=== PATIENT | female | born 1950 | race Caucasian/White ===

== ENCOUNTER 2016-10-18 11:08 | Emergency (ER) | payer OTHER ==
[~2016-10-18] VITALS: Ht 154.9 cm; Wt 55.3 kg
[~2016-10-18 11:08] MED LIST: ALBUTEROL0.09 MG/A2 INH; AMARYL4 MG PO; ASACOL400 MG PO; ASPIRIN81 M1 PO; BACTRIM DS 8001 TA1 PO; BACTROBAN22 T; BETADINE T; BETAMETHASONE VA0.1% T; BROMFED DM 480480 ML PO; CLINDAMYCIN300 MG PO; DAILY VITAMIN1 EAC3 PO; DARVOCET N 1001 TAB PO; DAYPRO600 M1 PO; DELTASONE10 MG PO; DIFLUCAN200 MG PO; DONNATAL1 TAB PO; DRISDOL50000 IU PO; FLAGYL500 MG PO; FLEXERIL5 MG PO; FOSAMAX70 M1 PO; FOSAMAX70 MG PO; GLUCOPHAGE500 MG PO; IMDUR SA30 MG PO; IMDUR30 MG PO; ISOSORBIDE MONO30 MG PO; LEVAQUIN250 MG PO; LIPITOR20 MG PO; LISINOPRIL10 MG PO; LOPRESSOR25 MG PO; MAGNESIUM OXID400 MG PO; MOTRIN800 MG PO; MULTIPLE VITAMI1 CAP PO; NEXIUM40 MG PO; NITROSTAT0.4 MG SL; NORCO 325 MG-51 TAB PO; OSCAL,OYSTER S500 MG PO; PLAVIX75 M1 PO; PLAVIX75 MG PO; PRILOSEC20 MG PO; PROAIR HFA0.09 MG/AC INH; PROTONIX40 MG PO; SYNTHROID25 MCG PO; TOPROL XL50 M1 PO; TOPROL XL50 MG PO; TRAMADOL HCL50 MG PO; VICODIN 5/500 505 MG PO; VITAMIN D2400 UNIT PO; VITAMIN D50000 I3 PO; ZOCOR40 MG PO; ZOFRAN4 MG PO; ZOLOFT50 MG PO
[2016-10-18] MEDS ORDERED: LOMOTIL 0.025 M1 TA1 PO (11:20)
[2016-10-18] MEDS ORDERED: FOSAMAX70 M1 PO (11:21)
[2016-10-18] MEDS ORDERED: ATROVENT I0.5 MG/2.1 INH (11:22)
[2016-10-18] MEDS ORDERED: METFORMIN HCL500 MG PO (11:24)
[2016-10-18] MEDS ORDERED: OXYCODONE HYDRO15 MG PO (11:26)
[2016-10-18] MEDS ORDERED: PSYLLIUM HUSK (11:28)
[2016-10-18] MEDS ORDERED: ZOLOFT50 MG PO (11:29)
[2016-10-18] MEDS ORDERED: MULTI VITAMINS1 TAB PO (11:30)
[2016-10-18] MEDS ORDERED: VITAMIN D5000 I3 PO (11:30)
[2016-10-18] MEDS ORDERED: GLIMEPIRIDE4 M1 PO (11:31)
[2016-10-18 12:01] LABS: HEMATOCRIT 32.1 % (37.0-47.0); HEMOGLOBIN 10.3 g/dl (12.0-16.0); MEAN CELL VOLUME 81.5 fl (81.0-99.0); MEAN CORPUSCULAR HGB 26.1 pg (27.0-31.0); MEAN CORPUSCULAR HGB CONC 32.1 g/dl (33.0-37.0); MEAN PLATELET VOLUME 9.8 fl (9.6-12.3); PLATELET COUNT AUTOMATED 580 10*3/uL (130-400); RED BLOOD COUNT 3.94 10*6/uL (4.10-5.10); RED CELL DISTRI WIDTH 17.2 % (0-14.5); WHITE BLOOD COUNT 23.5 10*3/uL (4.8-10.8)
[2016-10-18 12:17] LABS: ALBUMIN 2.4 gm/dl (3.1-4.5); BILIRUBIN, TOTAL 0.3 mg/dl (0.2-1.0); MAGNESIUM 2.1 mg/dL (1.5-2.1); POTASSIUM 3.6 mmol/L (3.5-5.1); TOTAL PROTEIN 8.1 gm/dL (6.4-8.2)
[2016-10-18 12:19] LABS: LYMPHOCYTE # 0.7 10*3/uL (1.3-4.4); MONOCYTE # 0.7 10*3/uL (0.1-1.0); NEUTROPHIL # 22.1 10*3/uL (2.3-7.9); NEUTROPHILS 94 % (47-73); TOTAL CELLS COUNTED 100 #CELLS
[2016-10-18 12:20] LABS: PLATELET SUFFICIENCY HIGH (NORMAL)
[2016-10-18 14:31] LABS: BILIRUBIN 2+ (NEGATIVE); BLOOD 2+ (NEGATIVE); COLOR YELLOW (YELLOW); GLUCOSE NEGATIVE (NEGATIVE); KETONE TRACE (NEGATIVE); LEUKO ESTERASE 1+ (NEGATIVE); NITRITE NEGATIVE (NEGATIVE); PROTEIN 2+ (NEGATIVE); SPECIFIC GRAVITY >= 1.030 (1.005-1.030); UROBILINOGEN 0.2 E.U./dl (0.2-1.0)
[2016-10-18 14:32] LABS: CLARITY CLOUDY (CLEAR)
[2016-10-18 14:42] LABS: BACTERIA 2+; URINE REFLEX COMMENT YES (NO); WBC 21-30 wbc/hpf (0-5)
[2016-10-18 15:01] LABS: LA>2 REFLEX 2 HR DRAW NOW
[2016-10-18 16:13] VITALS: BP 116/66
== END 2016-10-18 17:29 | disposition short-term general hospital (02) ==
LOC: ED 11:08
PROVIDERS: Emergency Medicine
DX: A41.9 Sepsis, unspecified organism (principal); N39.0 Urinary tract infection, site not specified; E86.0 Dehydration; Z88.0 Allergy status to penicillin; Z88.1 Allergy status to other antibiotic agents; Z88.8 Allergy status to other drugs, medicaments and biological substances; Z90.49 Acquired absence of other specified parts of digestive tract; Z79.899 Other long term (current) drug therapy

== ENCOUNTER 2016-11-07 07:50 | Inpatient (IN) | payer OTHER ==
[~2016-11-07] VITALS: Ht 155 cm; Wt 52.3 kg
[2016-11-07] VITALS (70 sets, daily range): BP systolic 74–146; BP diastolic 40–90
--- NOTE | ~2016-11-07 | EKG ---
[place], [place] ELECTROCARDIOGRAM REPORT NAME: BLAS CANO UNIT #: [id number] ROOM: [facility] DOCTOR: VIDAL KITCHEN,EMANUEL BIRTHDATE: [birth year] DOS: 11/07/2016 TIME: 07:55. Sinus tachycardia at rate of 138, low voltage present right axis deviation, probable right atrial enlargement and left atrial enlargement, T-wave inversion in inferior lateral leads, maybe related to her secondary ____ ischemia, prolonged QT interval. Abnormal EKG. EMANUEL DRAKE MD CM:EKGRPT:ELECTROCARDIOGRAM REPORT [id number] EMANUEL DRAKE MD
[~2016-11-07 07:50] MED LIST changes: +ATROVENT I0.5 MG/2.1 INH; +GLIMEPIRIDE4 M1 PO; +LOMOTIL 0.025 M1 TA1 PO; +METFORMIN HCL500 MG PO; +MULTI VITAMINS1 TAB PO; +OXYCODONE HYDRO15 MG PO; +PSYLLIUM HUSK; +VITAMIN D5000 I3 PO
[2016-11-07] MEDS ORDERED: ZANTAC 150150 MG PO (08:05)
[2016-11-07] MEDS ORDERED: QUESTRAN POWDE378 GM PO (08:06)
[2016-11-07] MEDS ORDERED: SERTRALINE HYDR50 MG PO (08:07)
[2016-11-07] MEDS ORDERED: ACETAMINOPHEN-O1 TAB PO (08:09)
[2016-11-07] MEDS ORDERED: JANUVIA100 MG PO (08:10)
[2016-11-07 08:39] LABS: HEMATOCRIT 29.9 % (37.0-47.0); HEMOGLOBIN 9.4 g/dl (12.0-16.0); MEAN CELL VOLUME 81.3 fl (81.0-99.0); MEAN CORPUSCULAR HGB 25.5 pg (27.0-31.0); MEAN CORPUSCULAR HGB CONC 31.4 g/dl (33.0-37.0); MEAN PLATELET VOLUME 9.5 fl (9.6-12.3); PLATELET COUNT AUTOMATED 468 10*3/uL (130-400); RED BLOOD COUNT 3.68 10*6/uL (4.10-5.10); RED CELL DISTRI WIDTH 16.3 % (0-14.5); WHITE BLOOD COUNT 29.4 10*3/uL (4.8-10.8)
[2016-11-07 08:49] LABS: INTERNATIONAL NORM RATIO 1.4 (2.0-3.5); PROTHROMBIN TIME 14.6 SECONDS (9.0-12.4)
[2016-11-07 08:55] LABS: ALBUMIN 2.7 gm/dl (3.1-4.5); ALKALINE PHOSPHATASE 144 U/L (45-117); BILIRUBIN, TOTAL 0.3 mg/dl (0.2-1.0); BUN 33 mg/dl (7-24); CARBON DIOXIDE 21 mmol/L (21-32); CHLORIDE 97 mmol/L (98-107); EST GLOM FILT AFRICAN AMERICAN 28 ml/min; GLUCOSE 158 mg/dL (65-99); POTASSIUM 4.3 mmol/L (3.5-5.1); SGOT/AST 14 IU/L (3-35); SGPT/ALT 18 U/L (12-78); SODIUM 137 mmol/L (136-145); TOTAL PROTEIN 8.1 gm/dL (6.4-8.2)
[2016-11-07 08:59] LABS: EOSINOPHIL # 0.6 10*3/uL (0-0.4); EOSINOPHILS 2 % (1-4); MONOCYTE # 0.9 10*3/uL (0.1-1.0); MYELOCYTES 1 % (0-0); NEUTROPHIL # 27.6 10*3/uL (2.3-7.9); NEUTROPHILS 94 % (47-73); TOTAL CELLS COUNTED 100 #CELLS
[2016-11-07 09:00] LABS: PLATELET SUFFICIENCY HIGH (NORMAL)
[2016-11-07 09:08] LABS: TROPONIN I < 0.015 ng/ml (<0.045)
[2016-11-07 09:35] LABS: BILIRUBIN NEGATIVE (NEGATIVE); BLOOD 3+ (NEGATIVE); CLARITY CLOUDY (CLEAR); COLOR YELLOW (YELLOW); GLUCOSE NEGATIVE (NEGATIVE); KETONE TRACE (NEGATIVE); LEUKO ESTERASE 2+ (NEGATIVE); NITRITE NEGATIVE (NEGATIVE); PROTEIN 2+ (NEGATIVE); SPECIFIC GRAVITY >= 1.030 (1.005-1.030); UROBILINOGEN 0.2 E.U./dl (0.2-1.0)
[2016-11-07 09:45] LABS: URINE REFLEX COMMENT YES (NO); WBC TNTC wbc/hpf (0-5)
[2016-11-07 10:36] LABS: LA>2 REFLEX 2 HR DRAW NOW
[2016-11-07] MEDS ORDERED: VITAMIN D50000 UNIT PO (12:09)
[2016-11-08] VITALS (54 sets, daily range): BP systolic 83–122; BP diastolic 40–79
[2016-11-08 05:33] LABS: POTASSIUM 3.5 mmol/L (3.5-5.1)
[2016-11-08 05:51] LABS: HEMATOCRIT 27.1 % (37.0-47.0); HEMOGLOBIN 8.3 g/dl (12.0-16.0); MEAN CELL VOLUME 82.9 fl (81.0-99.0); MEAN CORPUSCULAR HGB 25.4 pg (27.0-31.0); MEAN CORPUSCULAR HGB CONC 30.6 g/dl (33.0-37.0); MEAN PLATELET VOLUME 9.7 fl (9.6-12.3); PLATELET COUNT AUTOMATED 449 10*3/uL (130-400); RED BLOOD COUNT 3.27 10*6/uL (4.10-5.10); RED CELL DISTRI WIDTH 16.2 % (0-14.5); WHITE BLOOD COUNT 26.7 10*3/uL (4.8-10.8)
[2016-11-08 06:25] LABS: INTERNATIONAL NORM RATIO 1.5 (2.0-3.5); PROTHROMBIN TIME 16.4 SECONDS (9.0-12.4)
[2016-11-08 06:49] LABS: HYPOCHROMIA SLIGHT; MONOCYTE # 0.8 10*3/uL (0.1-1.0); NEUTROPHIL # 25.9 10*3/uL (2.3-7.9); NEUTROPHILS 97 % (47-73); PLATELET SUFFICIENCY HIGH (NORMAL); TOTAL CELLS COUNTED 100 #CELLS
[2016-11-08 06:56] LABS: HEMOGLOBIN A1c 5.7 % (4.8-5.6)
== END 2016-11-08 16:08 | disposition short-term general hospital (02) | DRG 871 ==
LOC: ED 07:50 → ICCU 10:55 → EDHOLD 10:55 → ICCU 11:10
PROVIDERS: Emergency Medicine; Internal Medicine
DX: A41.9 Sepsis, unspecified organism (principal); E43 Unspecified severe protein-calorie malnutrition; L89.154 Pressure ulcer of sacral region, stage 4; N18.4 Chronic kidney disease, stage 4 (severe); E11.22 Type 2 diabetes mellitus with diabetic chronic kidney disease; J44.9 Chronic obstructive pulmonary disease, unspecified; R65.20 Severe sepsis without septic shock; D47.3 Essential (hemorrhagic) thrombocythemia; I12.9 Hypertensive chronic kidney disease with stage 1 through stage 4 chronic kidney disease, or unspecified chronic kidney disease; E55.9 Vitamin D deficiency, unspecified; E78.5 Hyperlipidemia, unspecified; I25.10 Atherosclerotic heart disease of native coronary artery without angina pectoris; G89.29 Other chronic pain; R82.71 Bacteriuria; K57.90 Diverticulosis of intestine, part unspecified, without perforation or abscess without bleeding; R74.0 Nonspecific elevation of levels of transaminase and lactic acid dehydrogenase [LDH]; M81.0 Age-related osteoporosis without current pathological fracture; E11.65 Type 2 diabetes mellitus with hyperglycemia; F32.9 Major depressive disorder, single episode, unspecified; Z95.5 Presence of coronary angioplasty implant and graft; Z68.21 Body mass index [BMI] 21.0-21.9, adult; Z93.3 Colostomy status; Z98.49 Cataract extraction status, unspecified eye; Z82.49 Family history of ischemic heart disease and other diseases of the circulatory system; Z83.6 Family history of other diseases of the respiratory system; Z88.0 Allergy status to penicillin; Z88.1 Allergy status to other antibiotic agents; Z88.8 Allergy status to other drugs, medicaments and biological substances; Z79.899 Other long term (current) drug therapy

== ENCOUNTER 2017-02-23 11:04 | Inpatient (IN) | payer OTHER ==
[2017-02-23] VITALS (10 sets, daily range): BP systolic 88–140; BP diastolic 40–65
[~2017-02-23] VITALS: Ht 157.5 cm; Wt 54.6 kg
[~2017-02-23 11:04] MED LIST changes: +ACETAMINOPHEN-O1 TAB PO; +JANUVIA100 MG PO; +QUESTRAN POWDE378 GM PO; +SERTRALINE HYDR50 MG PO; +VITAMIN D50000 UNIT PO; +ZANTAC 150150 MG PO
[2017-02-23 12:04] LABS: BASO % 0.3 % (0.0-1.0); EOS # 0.2 10*3/uL (0.0-0.4); EOS % 1.7 % (1.0-4.0); HEMATOCRIT 23.8 % (37.0-47.0); HEMOGLOBIN 6.9 g/dl (12.0-16.0); LYMPH # 0.5 10*3/uL (1.3-4.4); LYMPH % 5.1 % (27.0-41.0); MEAN CELL VOLUME 87.8 fl (81.0-99.0); MEAN CORPUSCULAR HGB 25.5 pg (27.0-31.0); MEAN PLATELET VOLUME 9.5 fl (9.6-12.3); MONO # 0.8 10*3/uL (0.1-1.0); MONO % 7.1 % (3.0-9.0); NEUT # 9.1 10*3/uL (2.3-7.9); NEUT % 85.4 % (47.0-73.0); PLATELET COUNT AUTOMATED 360 10*3/uL (130-400); RED BLOOD COUNT 2.71 10*6/uL (4.10-5.10); RED CELL DISTRI WIDTH 14.6 % (0-14.5); WHITE BLOOD COUNT 10.7 10*3/uL (4.8-10.8)
[2017-02-23 12:13] LABS: INTERNATIONAL NORM RATIO 1.2 (2.0-3.5); PROTHROMBIN TIME 13.4 SECONDS (9.0-12.4)
[2017-02-23 12:19] LABS: ALBUMIN 1.9 gm/dl (3.1-4.5); ALKALINE PHOSPHATASE 157 U/L (45-117); BILIRUBIN, TOTAL 0.1 mg/dl (0.2-1.0); BUN 34 mg/dl (7-24); CARBON DIOXIDE 19 mmol/L (21-32); CHLORIDE 110 mmol/L (98-107); EST GLOM FILT AFRICAN AMERICAN > 60 ml/min; GLUCOSE 125 mg/dL (65-99); POTASSIUM 4.1 mmol/L (3.5-5.1); SGOT/AST 9 IU/L (3-35); SGPT/ALT 16 U/L (12-78); SODIUM 141 mmol/L (136-145); TOTAL PROTEIN 6.5 gm/dL (6.4-8.2)
[2017-02-23] MEDS ORDERED: PERCOCET 5-3251 EACH PO (14:43)
[2017-02-23] MEDS ORDERED: LOMOTIL 2.5-0.1 EACH PO (14:46)
[2017-02-23] MEDS ORDERED: FLAGYL500 MG PO (15:40)
[2017-02-23] MEDS ORDERED: SODIUM CHLORIDE PO (15:42)
[2017-02-23 19:23] LABS: BASO % 0.3 % (0.0-1.0); EOS # 0.2 10*3/uL (0.0-0.4); EOS % 1.7 % (1.0-4.0); HEMATOCRIT 27.7 % (37.0-47.0); HEMOGLOBIN 8.6 g/dl (12.0-16.0); LYMPH # 0.9 10*3/uL (1.3-4.4); LYMPH % 9.2 % (27.0-41.0); MEAN CORPUSCULAR HGB 26.4 pg (27.0-31.0); MEAN PLATELET VOLUME 9.9 fl (9.6-12.3); MONO # 0.9 10*3/uL (0.1-1.0); MONO % 9.3 % (3.0-9.0); NEUT # 7.6 10*3/uL (2.3-7.9); NEUT % 79.2 % (47.0-73.0); PLATELET COUNT AUTOMATED 357 10*3/uL (130-400); RED BLOOD COUNT 3.26 10*6/uL (4.10-5.10); RED CELL DISTRI WIDTH 14.7 % (0-14.5); WHITE BLOOD COUNT 9.7 10*3/uL (4.8-10.8)
[2017-02-23 19:38] LABS: INTERNATIONAL NORM RATIO 1.2 (2.0-3.5); PROTHROMBIN TIME 12.8 SECONDS (9.0-12.4)
[2017-02-23 19:41] LABS: FREE T4 1.02 ng/dl (0.76-1.46); MAGNESIUM 2.2 mg/dL (1.5-2.1); PHOSPHOROUS 3.9 mg/dL (2.5-4.9)
[2017-02-23 19:45] LABS: TROPONIN I < 0.015 ng/ml (<0.045)
[2017-02-24] VITALS: BP 108/59
[2017-02-24 06:43] LABS: BASO % 0.4 % (0.0-1.0); EOS # 0.3 10*3/uL (0.0-0.4); EOS % 3.6 % (1.0-4.0); HEMATOCRIT 26.9 % (37.0-47.0); HEMOGLOBIN 8.2 g/dl (12.0-16.0); LYMPH # 0.8 10*3/uL (1.3-4.4); LYMPH % 10.9 % (27.0-41.0); MEAN CELL VOLUME 85.7 fl (81.0-99.0); MEAN CORPUSCULAR HGB 26.1 pg (27.0-31.0); MEAN CORPUSCULAR HGB CONC 30.5 g/dl (33.0-37.0); MEAN PLATELET VOLUME 10.1 fl (9.6-12.3); MONO # 0.8 10*3/uL (0.1-1.0); MONO % 11.9 % (3.0-9.0); NEUT # 5.1 10*3/uL (2.3-7.9); NEUT % 72.8 % (47.0-73.0); PLATELET COUNT AUTOMATED 369 10*3/uL (130-400); RED BLOOD COUNT 3.14 10*6/uL (4.10-5.10)
[2017-02-24 07:15] LABS: ALBUMIN 1.9 gm/dl (3.1-4.5); ALKALINE PHOSPHATASE 153 U/L (45-117); BILIRUBIN, TOTAL 0.2 mg/dl (0.2-1.0); BUN 37 mg/dl (7-24); CARBON DIOXIDE 21 mmol/L (21-32); CHLORIDE 109 mmol/L (98-107); EST GLOM FILT AFRICAN AMERICAN > 60 ml/min; GLUCOSE 167 mg/dL (65-99); POTASSIUM 3.9 mmol/L (3.5-5.1); SGOT/AST 10 IU/L (3-35); SGPT/ALT 14 U/L (12-78); SODIUM 139 mmol/L (136-145); TOTAL PROTEIN 6.3 gm/dL (6.4-8.2)
[2017-02-24 08:00] VITALS: BP 111/65
[2017-02-24 12:00] VITALS: BP 107/57
[2017-02-24 16:00] VITALS: BP 112/54
[2017-02-24 20:00] VITALS: BP 101/52
[2017-02-25] VITALS: BP 112/51
[2017-02-25 07:07] LABS: BASO % 0.3 % (0.0-1.0); EOS # 0.2 10*3/uL (0.0-0.4); EOS % 3.2 % (1.0-4.0); LYMPH # 0.7 10*3/uL (1.3-4.4); LYMPH % 9.9 % (27.0-41.0); MEAN CELL VOLUME 86.1 fl (81.0-99.0); MEAN CORPUSCULAR HGB 26.5 pg (27.0-31.0); MEAN CORPUSCULAR HGB CONC 30.8 g/dl (33.0-37.0); MONO # 0.9 10*3/uL (0.1-1.0); MONO % 13.2 % (3.0-9.0); PLATELET COUNT AUTOMATED 367 10*3/uL (130-400); RED BLOOD COUNT 3.02 10*6/uL (4.10-5.10); RED CELL DISTRI WIDTH 14.9 % (0-14.5); WHITE BLOOD COUNT 6.9 10*3/uL (4.8-10.8)
[2017-02-25 07:27] LABS: ALBUMIN 1.9 gm/dl (3.1-4.5); ALKALINE PHOSPHATASE 157 U/L (45-117); BILIRUBIN, TOTAL 0.1 mg/dl (0.2-1.0); BUN 39 mg/dl (7-24); CARBON DIOXIDE 21 mmol/L (21-32); CHLORIDE 110 mmol/L (98-107); EST GLOM FILT AFRICAN AMERICAN > 60 ml/min; GLUCOSE 114 mg/dL (65-99); MAGNESIUM 1.9 mg/dL (1.5-2.1); PHOSPHOROUS 3.3 mg/dL (2.5-4.9); POTASSIUM 4.2 mmol/L (3.5-5.1); SGOT/AST 9 IU/L (3-35); SGPT/ALT 13 U/L (12-78); SODIUM 139 mmol/L (136-145); TOTAL PROTEIN 6.3 gm/dL (6.4-8.2)
[2017-02-25 08:00] VITALS: BP 104/50
== END 2017-02-25 13:33 | disposition short-term general hospital (02) | DRG 602 ==
LOC: ED 11:04 → 5E 12:38 → EDHOLD 12:38 → 5E 12:45
PROVIDERS: Internal Medicine; Internal Medicine Hospice and Palliative Medicine; Nurse Practitioner Family; Registered Nurse
PROC: 30233N1 Transfusion of Nonautologous Red Blood Cells into Peripheral Vein, Percutaneous Approach (ICD-10-PCS; principal; 2017-02-23)
DX: L02.211 Cutaneous abscess of abdominal wall (principal); L89.154 Pressure ulcer of sacral region, stage 4; E43 Unspecified severe protein-calorie malnutrition; K63.2 Fistula of intestine; E87.8 Other disorders of electrolyte and fluid balance, not elsewhere classified; N18.4 Chronic kidney disease, stage 4 (severe); E11.22 Type 2 diabetes mellitus with diabetic chronic kidney disease; J44.9 Chronic obstructive pulmonary disease, unspecified; D63.8 Anemia in other chronic diseases classified elsewhere; K60.4 Rectal fistula; I12.9 Hypertensive chronic kidney disease with stage 1 through stage 4 chronic kidney disease, or unspecified chronic kidney disease; M81.0 Age-related osteoporosis without current pathological fracture; E55.9 Vitamin D deficiency, unspecified; E11.65 Type 2 diabetes mellitus with hyperglycemia; F32.9 Major depressive disorder, single episode, unspecified; E78.5 Hyperlipidemia, unspecified; K57.90 Diverticulosis of intestine, part unspecified, without perforation or abscess without bleeding; Z68.22 Body mass index [BMI] 22.0-22.9, adult; Z93.3 Colostomy status; Z93.2 Ileostomy status; Z95.5 Presence of coronary angioplasty implant and graft; Z87.891 Personal history of nicotine dependence; Z88.0 Allergy status to penicillin; Z88.1 Allergy status to other antibiotic agents; Z88.8 Allergy status to other drugs, medicaments and biological substances; Z79.02 Long term (current) use of antithrombotics/antiplatelets; Z79.899 Other long term (current) drug therapy; Z82.49 Family history of ischemic heart disease and other diseases of the circulatory system; Z82.5 Family history of asthma and other chronic lower respiratory diseases; Z98.49 Cataract extraction status, unspecified eye

== ENCOUNTER → 2017-05-23 | Day surgery (SDC) | payer OTHER ==
--- NOTE | 2017-05-16 10:50 | NUR ---
PT HERE FOR PICC LINE DRESSING CHANGE DONE ORDERED. SITE ASYMPTOMATIC. NO REDDNESS OR SWELLING NOTED. PT TOLERATED WELL. SCHEDULED FOR NEXT APPOINTMENT ON May. VANNESA VEE RN
[~2017-05-23] MED LIST changes: +LOMOTIL 2.5-0.1 EACH PO; +PERCOCET 5-3251 EACH PO; +SODIUM CHLORIDE PO
--- NOTE | 2017-05-23 11:00 | NUR ---
PT HERE FOR LAB DRAW AND PICC LINE DRESSING CHANGE. LABS REMOVED FROM PICC LINE WITHOUT DIFFCULTLY. ASEPTIC DRESSING CHANGE OF MARIA INES PICC LINE PROFORMED. NO REDDNESS OR DRAINAGE NOTED. NEW DRESSING APPLIED. PATIENT TOLERATED WELL. LABS SENT TO MAIN LAB. INSTRUCTED ON NEXT APPOINTMENT. VANNESA VEE RN
[2017-05-23 11:35] LABS: BASO % 0.3 % (0.0-1.0); EOS # 0.1 10*3/uL (0.0-0.4); EOS % 1.5 % (1.0-4.0); HEMATOCRIT 32.1 % (37.0-47.0); LYMPH # 0.7 10*3/uL (1.3-4.4); LYMPH % 7.8 % (27.0-41.0); MEAN CELL VOLUME 89.4 fl (81.0-99.0); MEAN CORPUSCULAR HGB 27.9 pg (27.0-31.0); MEAN CORPUSCULAR HGB CONC 31.2 g/dl (33.0-37.0); MEAN PLATELET VOLUME 10.6 fl (9.6-12.3); MONO # 0.7 10*3/uL (0.1-1.0); MONO % 7.2 % (3.0-9.0); NEUT # 7.8 10*3/uL (2.3-7.9); NEUT % 82.5 % (47.0-73.0); PLATELET COUNT AUTOMATED 272 10*3/uL (130-400); RED BLOOD COUNT 3.59 10*6/uL (4.10-5.10); RED CELL DISTRI WIDTH 15.5 % (0-14.5); WHITE BLOOD COUNT 9.5 10*3/uL (4.8-10.8)
[2017-05-23 12:04] LABS: ALBUMIN 2.5 gm/dl (3.1-4.5); ALKALINE PHOSPHATASE 167 U/L (45-117); BUN 36 mg/dl (7-24); CHLORIDE 103 mmol/L (98-107); CREATININE 0.66 mg/dL (0.55-1.02); PHOSPHOROUS 3.6 mg/dL (2.5-4.9); PREALBUMIN 18 mg/dl (20-40); SGOT/AST 12 IU/L (3-35); SGPT/ALT 13 U/L (12-78); SODIUM 139 mmol/L (136-145); TOTAL PROTEIN 7.2 gm/dL (6.4-8.2)
== END | disposition home or self-care (01) ==
LOC: SDC 01:48
PROVIDERS: Internal Medicine
DX: Z48.01 Encounter for change or removal of surgical wound dressing (principal)

== ENCOUNTER → 2017-05-30 | Day surgery (SDC) | payer OTHER ==
--- NOTE | 2017-05-30 11:25 | NUR ---
1122- PICC LINE DRESSING RIGHT ARM CHANGED USING STERILE TECHNIQUE. SITE IS ASYMPTOCATIC. DISCHARGED VIA W/C.
== END | disposition home or self-care (01) ==
LOC: SDC 03:12
DX: Z48.01 Encounter for change or removal of surgical wound dressing (principal)

== ENCOUNTER → 2017-06-13 | Day surgery (SDC) | payer OTHER ==
--- NOTE | 2017-06-13 11:20 | NUR ---
PT HERE FOR PICC LINE DRESSING CHANGE. CHANGE UNDER ASEPTIC TECH. SITE ASYMPTOMATIC, NO REDNESS OR SWELLING NOTED. STERILE DRESSING APPLIED ALONG WITH END CAPS. TOLERATED WELL. RESCHEDULE FOR NEXT APPOINTMENT. VANNESA VEE RN
== END | disposition home or self-care (01) ==
LOC: SDC 11:01
DX: Z48.01 Encounter for change or removal of surgical wound dressing (principal); Z88.0 Allergy status to penicillin

== ENCOUNTER → 2017-06-20 | Day surgery (SDC) | payer OTHER ==
--- NOTE | 2017-06-20 11:08 | NUR ---
PT HERE FOR LAB DRAW AND PICC LINE DRESSING CHANGE ORDERED. LABS SENT TO MAIN LAB WITH IONIZED CA+ ON ICE. PICC LINE SITE ASYMPTOMATIC. DRESSING CHANGED UNDER ASEPTIC TECH. TOLERATED WELL. SCHEDULE FOR NEXT APPOINTMENT. 06/27 AT 1100.
[2017-06-20 11:23] LABS: BASO % 0.3 % (0.0-1.0); EOS # 0.1 10*3/uL (0.0-0.4); EOS % 0.9 % (1.0-4.0); HEMATOCRIT 30.5 % (37.0-47.0); HEMOGLOBIN 9.4 g/dl (12.0-16.0); LYMPH % 10.4 % (27.0-41.0); MEAN CELL VOLUME 92.4 fl (81.0-99.0); MEAN CORPUSCULAR HGB 28.5 pg (27.0-31.0); MEAN CORPUSCULAR HGB CONC 30.8 g/dl (33.0-37.0); MEAN PLATELET VOLUME 10.7 fl (9.6-12.3); MONO # 0.6 10*3/uL (0.1-1.0); MONO % 6.2 % (3.0-9.0); NEUT # 7.6 10*3/uL (2.3-7.9); NEUT % 81.9 % (47.0-73.0); PLATELET COUNT AUTOMATED 273 10*3/uL (130-400); RED CELL DISTRI WIDTH 15.8 % (0-14.5); WHITE BLOOD COUNT 9.3 10*3/uL (4.8-10.8)
[2017-06-20 11:55] LABS: ALBUMIN 2.4 gm/dl (3.1-4.5); BUN 30 mg/dl (7-24); CHLORIDE 101 mmol/L (98-107); CREATININE 0.72 mg/dL (0.55-1.02); PHOSPHOROUS 3.4 mg/dL (2.5-4.9); POTASSIUM 3.8 mmol/L (3.5-5.1); SGOT/AST 18 IU/L (3-35); SGPT/ALT 16 U/L (12-78); SODIUM 139 mmol/L (136-145); TOTAL PROTEIN 6.8 gm/dL (6.4-8.2)
[2017-06-20 11:58] LABS: ALKALINE PHOSPHATASE 156 U/L (45-117); PREALBUMIN 19 mg/dl (20-40)
== END | disposition home or self-care (01) ==
LOC: SDC 03:59
PROVIDERS: Internal Medicine
DX: Z48.01 Encounter for change or removal of surgical wound dressing (principal); Z88.0 Allergy status to penicillin; Z88.8 Allergy status to other drugs, medicaments and biological substances

== ENCOUNTER → 2017-06-27 | Day surgery (SDC) | payer OTHER ==
--- NOTE | 2017-06-27 11:00 | NUR ---
PT HERE FOR PICC LINE DRESSING CHANGE. SITE ASYMPTOMATIC WITHOUT REDNESS OR DRAINAGE NOTED. NEW DRESSING APPLIED UNDER ASEPTIC TECH. PT TOLERATED WELL. RESCHEDULE FOR NEXT APPOINTMEN. VANNESA VEE RN
== END | disposition home or self-care (01) ==
LOC: SDC 02:09
DX: Z48.01 Encounter for change or removal of surgical wound dressing (principal); Z88.0 Allergy status to penicillin; Z88.8 Allergy status to other drugs, medicaments and biological substances

== ENCOUNTER → 2017-07-04 | Day surgery (SDC) | payer OTHER ==
--- NOTE | 2017-07-04 12:19 | NUR ---
1130- PICC LINE DRESSING RIGHT ARM CHANGED USING STERILE TECHNIQUE. SITE IS ASYMPTOMATIC. DISCHARGED VIA WC WITH DAUGHTER.
== END | disposition home or self-care (01) ==
LOC: SDC 02:15
DX: Z48.01 Encounter for change or removal of surgical wound dressing (principal)

== ENCOUNTER → 2017-07-11 | Day surgery (SDC) | payer OTHER | LOC: SDC 02:13 | DX: Z48.01 Encounter for change or removal of surgical wound dressing (principal) ==

== ENCOUNTER → 2017-07-18 | Day surgery (SDC) | payer OTHER ==
[2017-07-18 11:07] LABS: BASO % 0.1 % (0.0-1.0); EOS # 0.1 10*3/uL (0.0-0.4); EOS % 0.9 % (1.0-4.0); HEMATOCRIT 27.7 % (37.0-47.0); HEMOGLOBIN 8.5 g/dl (12.0-16.0); LYMPH # 1.2 10*3/uL (1.3-4.4); LYMPH % 14.9 % (27.0-41.0); MEAN CELL VOLUME 93.6 fl (81.0-99.0); MEAN CORPUSCULAR HGB 28.7 pg (27.0-31.0); MEAN CORPUSCULAR HGB CONC 30.7 g/dl (33.0-37.0); MEAN PLATELET VOLUME 10.2 fl (9.6-12.3); MONO # 0.8 10*3/uL (0.1-1.0); NEUT % 73.6 % (47.0-73.0); PLATELET COUNT AUTOMATED 257 10*3/uL (130-400); RED BLOOD COUNT 2.96 10*6/uL (4.10-5.10); WHITE BLOOD COUNT 8.1 10*3/uL (4.8-10.8)
[2017-07-18 11:10] VITALS: BP 120/75
[2017-07-18 11:21] LABS: ALBUMIN 2.2 gm/dl (3.1-4.5); ALKALINE PHOSPHATASE 179 U/L (45-117); BUN 32 mg/dl (7-24); CHLORIDE 101 mmol/L (98-107); CREATININE 0.76 mg/dL (0.55-1.02); PHOSPHOROUS 3.7 mg/dL (2.5-4.9); POTASSIUM 3.7 mmol/L (3.5-5.1); SGOT/AST 12 IU/L (3-35); SGPT/ALT 14 U/L (12-78); SODIUM 138 mmol/L (136-145); TOTAL PROTEIN 6.9 gm/dL (6.4-8.2)
[2017-07-18 11:38] LABS: PREALBUMIN 17 mg/dl (20-40)
== END | disposition home or self-care (01) ==
LOC: SDC 03:38
PROVIDERS: Internal Medicine
DX: Z48.01 Encounter for change or removal of surgical wound dressing (principal)

== ENCOUNTER → 2017-07-25 | Day surgery (SDC) | payer OTHER | LOC: SDC 01:07 | DX: Z48.01 Encounter for change or removal of surgical wound dressing (principal); Z88.0 Allergy status to penicillin; Z88.8 Allergy status to other drugs, medicaments and biological substances ==

== ENCOUNTER → 2017-08-01 | Day surgery (SDC) | payer OTHER | LOC: SDC 09:53 | DX: Z48.01 Encounter for change or removal of surgical wound dressing (principal) ==

== ENCOUNTER → 2017-08-08 | Day surgery (SDC) | payer OTHER | LOC: SDC 10:51 | DX: Z48.01 Encounter for change or removal of surgical wound dressing (principal) ==

== ENCOUNTER → 2017-08-15 | Day surgery (SDC) | payer OTHER | LOC: SDC 10:17 | DX: Z48.01 Encounter for change or removal of surgical wound dressing (principal) ==

== ENCOUNTER → 2017-08-22 | Day surgery (SDC) | payer OTHER ==
[2017-08-22 10:51] LABS: BASO % 0.2 % (0.0-1.0); EOS # 0.1 10*3/uL (0.0-0.4); EOS % 0.8 % (1.0-4.0); HEMATOCRIT 28.7 % (37.0-47.0); HEMOGLOBIN 8.9 g/dl (12.0-16.0); LYMPH # 1.2 10*3/uL (1.3-4.4); LYMPH % 11.8 % (27.0-41.0); MEAN CORPUSCULAR HGB 28.5 pg (27.0-31.0); MEAN PLATELET VOLUME 10.5 fl (9.6-12.3); MONO # 0.7 10*3/uL (0.1-1.0); MONO % 6.6 % (3.0-9.0); NEUT # 8.3 10*3/uL (2.3-7.9); NEUT % 80.2 % (47.0-73.0); PLATELET COUNT AUTOMATED 268 10*3/uL (130-400); RED BLOOD COUNT 3.12 10*6/uL (4.10-5.10); RED CELL DISTRI WIDTH 13.6 % (0-14.5); WHITE BLOOD COUNT 10.4 10*3/uL (4.8-10.8)
[2017-08-22 11:06] LABS: ALBUMIN 2.1 gm/dl (3.1-4.5); ALKALINE PHOSPHATASE 283 U/L (45-117); BUN 39 mg/dl (7-24); CHLORIDE 103 mmol/L (98-107); CREATININE 0.89 mg/dL (0.55-1.02); PHOSPHOROUS 3.6 mg/dL (2.5-4.9); POTASSIUM 4.1 mmol/L (3.5-5.1); SGOT/AST 36 IU/L (3-35); SGPT/ALT 52 U/L (12-78); SODIUM 139 mmol/L (136-145); TOTAL PROTEIN 6.6 gm/dL (6.4-8.2)
[2017-08-22 11:08] LABS: PREALBUMIN 16 mg/dl (20-40)
== END | disposition home or self-care (01) ==
LOC: SDC 00:41
PROVIDERS: Internal Medicine
DX: Z48.01 Encounter for change or removal of surgical wound dressing (principal)

== ENCOUNTER → 2017-08-29 | Day surgery (SDC) | payer OTHER | END | disposition home or self-care (01) | LOC: SDC 07:43 | DX: Z48.01 Encounter for change or removal of surgical wound dressing (principal); Z88.0 Allergy status to penicillin; Z88.8 Allergy status to other drugs, medicaments and biological substances ==

== ENCOUNTER → 2017-09-05 | Day surgery (SDC) | payer OTHER | LOC: SDC 03:55 | DX: Z48.01 Encounter for change or removal of surgical wound dressing (principal); Z88.0 Allergy status to penicillin; Z88.8 Allergy status to other drugs, medicaments and biological substances ==

== ENCOUNTER → 2017-09-12 | Day surgery (SDC) | payer OTHER | LOC: SDC 08:03 | DX: Z48.01 Encounter for change or removal of surgical wound dressing (principal); K63.2 Fistula of intestine ==

== ENCOUNTER → 2017-09-19 | Day surgery (SDC) | payer OTHER ==
[2017-09-19 11:09] LABS: BASO % 0.4 % (0.0-1.0); EOS # 0.1 10*3/uL (0.0-0.4); EOS % 1.7 % (1.0-4.0); HEMATOCRIT 27.3 % (37.0-47.0); HEMOGLOBIN 8.1 g/dl (12.0-16.0); LYMPH % 12.5 % (27.0-41.0); MEAN CELL VOLUME 90.7 fl (81.0-99.0); MEAN CORPUSCULAR HGB 26.9 pg (27.0-31.0); MEAN CORPUSCULAR HGB CONC 29.7 g/dl (33.0-37.0); MEAN PLATELET VOLUME 10.2 fl (9.6-12.3); MONO # 0.9 10*3/uL (0.1-1.0); NEUT # 5.7 10*3/uL (2.3-7.9); NEUT % 73.9 % (47.0-73.0); PLATELET COUNT AUTOMATED 248 10*3/uL (130-400); RED BLOOD COUNT 3.01 10*6/uL (4.10-5.10); WHITE BLOOD COUNT 7.7 10*3/uL (4.8-10.8)
[2017-09-19 11:45] LABS: ALBUMIN 1.9 gm/dl (3.1-4.5); ALKALINE PHOSPHATASE 326 U/L (45-117); BUN 35 mg/dl (7-24); CHLORIDE 102 mmol/L (98-107); CREATININE 0.91 mg/dL (0.55-1.02); PHOSPHOROUS 3.6 mg/dL (2.5-4.9); SGOT/AST 30 IU/L (3-35); SGPT/ALT 39 U/L (12-78); SODIUM 139 mmol/L (136-145); TOTAL PROTEIN 6.1 gm/dL (6.4-8.2)
[2017-09-19 11:46] LABS: PREALBUMIN 10 mg/dl (20-40)
== END ==
LOC: SDC 01:32
PROVIDERS: Family Medicine
DX: Z48.01 Encounter for change or removal of surgical wound dressing (principal)

== ENCOUNTER → 2017-09-26 | Day surgery (SDC) | payer OTHER | END | disposition home or self-care (01) | LOC: SDC 02:24 | DX: Z48.01 Encounter for change or removal of surgical wound dressing (principal) ==

== ENCOUNTER → 2017-10-03 | Day surgery (SDC) | payer OTHER | END | disposition home or self-care (01) | LOC: SDC 03:56 | DX: Z48.01 Encounter for change or removal of surgical wound dressing (principal); Z88.0 Allergy status to penicillin; Z88.8 Allergy status to other drugs, medicaments and biological substances ==

== ENCOUNTER → 2017-10-10 | Day surgery (SDC) | payer OTHER ==
[~2017-10-10] MED LIST changes: +METOPROLOL SUCC50 M1 PO
== END ==
LOC: SDC 04:04
DX: Z48.01 Encounter for change or removal of surgical wound dressing (principal)

== ENCOUNTER → 2017-10-24 | Day surgery (SDC) | payer OTHER ==
[~2017-10-24] MED LIST changes: -METOPROLOL SUCC50 M1 PO; +TOPROL XL25 MG PO
[2017-10-24 11:33] LABS: ALBUMIN 2.1 gm/dl (3.1-4.5); ALKALINE PHOSPHATASE 345 U/L (45-117); BUN 31 mg/dl (7-24); CHLORIDE 103 mmol/L (98-107); CREATININE 0.88 mg/dL (0.55-1.02); PREALBUMIN 23 mg/dl (20-40); SGOT/AST 15 IU/L (3-35); SGPT/ALT 15 U/L (12-78); SODIUM 140 mmol/L (136-145); TOTAL PROTEIN 6.8 gm/dL (6.4-8.2)
== END | disposition home or self-care (01) ==
LOC: SDC 04:07
PROVIDERS: Internal Medicine
DX: Z48.00 Encounter for change or removal of nonsurgical wound dressing (principal); Z88.8 Allergy status to other drugs, medicaments and biological substances; Z88.0 Allergy status to penicillin

== ENCOUNTER → 2017-10-31 | Day surgery (SDC) | payer OTHER | END | disposition home or self-care (01) | LOC: SDC 01:40 | DX: Z48.01 Encounter for change or removal of surgical wound dressing (principal) ==

== ENCOUNTER → 2017-11-07 | Day surgery (SDC) | payer OTHER | END | disposition home or self-care (01) | LOC: SDC 04:26 | DX: Z48.01 Encounter for change or removal of surgical wound dressing (principal) ==

== ENCOUNTER → 2017-11-14 | Day surgery (SDC) | payer OTHER ==
[2017-11-14 11:12] LABS: BASO % 0.4 % (0.0-1.0); EOS # 0.2 10*3/uL (0.0-0.4); EOS % 2.8 % (1.0-4.0); HEMATOCRIT 30.8 % (37.0-47.0); HEMOGLOBIN 9.4 g/dl (12.0-16.0); LYMPH % 13.2 % (27.0-41.0); MEAN CELL VOLUME 93.3 fl (81.0-99.0); MEAN CORPUSCULAR HGB 28.5 pg (27.0-31.0); MEAN CORPUSCULAR HGB CONC 30.5 g/dl (33.0-37.0); MONO # 0.5 10*3/uL (0.1-1.0); MONO % 6.9 % (3.0-9.0); NEUT # 5.5 10*3/uL (2.3-7.9); PLATELET COUNT AUTOMATED 245 10*3/uL (130-400); WHITE BLOOD COUNT 7.3 10*3/uL (4.8-10.8)
[2017-11-14 11:40] LABS: ALBUMIN 2.3 gm/dl (3.1-4.5); ALKALINE PHOSPHATASE 225 U/L (45-117); BUN 32 mg/dl (7-24); CHLORIDE 100 mmol/L (98-107); CREATININE 0.72 mg/dL (0.55-1.02); PHOSPHOROUS 3.8 mg/dL (2.5-4.9); SGOT/AST 21 IU/L (3-35); SGPT/ALT 16 U/L (12-78); SODIUM 137 mmol/L (136-145); TOTAL PROTEIN 6.7 gm/dL (6.4-8.2)
[2017-11-14 12:37] LABS: PREALBUMIN 20 mg/dl (20-40)
== END | disposition home or self-care (01) ==
LOC: SDC 01:04
PROVIDERS: Internal Medicine
DX: Z48.01 Encounter for change or removal of surgical wound dressing (principal)

== ENCOUNTER → 2017-11-21 | Day surgery (SDC) | payer OTHER | END | disposition home or self-care (01) | LOC: SDC 02:28 | DX: Z48.01 Encounter for change or removal of surgical wound dressing (principal) ==

== ENCOUNTER → 2017-11-28 | Day surgery (SDC) | payer OTHER | END | disposition home or self-care (01) | LOC: SDC 02:12 | DX: Z48.01 Encounter for change or removal of surgical wound dressing (principal) ==

== ENCOUNTER → 2017-12-05 | Day surgery (SDC) | payer OTHER | END | disposition home or self-care (01) | LOC: SDC 01:24 | DX: Z48.01 Encounter for change or removal of surgical wound dressing (principal) ==

== ENCOUNTER → 2017-12-12 | Day surgery (SDC) | payer OTHER ==
[~2017-12-12] MED LIST changes: +MUCINEX ER600 MG PO; +NEXIUM 24HR20 M1 PO; +PREDNISONE10 MG PO
== END | disposition home or self-care (01) ==
LOC: SDC 09:40
DX: Z48.01 Encounter for change or removal of surgical wound dressing (principal)

== ENCOUNTER → 2017-12-19 | Day surgery (SDC) | payer OTHER ==
[2017-12-19 12:33] LABS: ALBUMIN 2.4 gm/dl (3.1-4.5); ALKALINE PHOSPHATASE 442 U/L (45-117); BUN 39 mg/dl (7-24); CHLORIDE 101 mmol/L (98-107); CREATININE 0.82 mg/dL (0.55-1.02); PHOSPHOROUS 4.3 mg/dL (2.5-4.9); POTASSIUM 4.2 mmol/L (3.5-5.1); SGOT/AST 43 IU/L (3-35); SGPT/ALT 45 U/L (12-78); SODIUM 138 mmol/L (136-145); TOTAL PROTEIN 6.6 gm/dL (6.4-8.2)
[2017-12-19 12:49] LABS: PREALBUMIN 14 mg/dl (20-40)
[2017-12-19 12:52] LABS: BASO % 0.2 % (0.0-1.0); EOS # 0.1 10*3/uL (0.0-0.4); EOS % 0.7 % (1.0-4.0); HEMATOCRIT 31.3 % (37.0-47.0); HEMOGLOBIN 9.4 g/dl (12.0-16.0); LYMPH # 0.7 10*3/uL (1.3-4.4); LYMPH % 8.1 % (27.0-41.0); MEAN CELL VOLUME 93.2 fl (81.0-99.0); MEAN PLATELET VOLUME 10.5 fl (9.6-12.3); MONO # 0.6 10*3/uL (0.1-1.0); MONO % 7.4 % (3.0-9.0); NEUT # 6.9 10*3/uL (2.3-7.9); NEUT % 83.1 % (47.0-73.0); PLATELET COUNT AUTOMATED 227 10*3/uL (130-400); RED BLOOD COUNT 3.36 10*6/uL (4.10-5.10); RED CELL DISTRI WIDTH 14.3 % (0-14.5); WHITE BLOOD COUNT 8.3 10*3/uL (4.8-10.8)
== END | disposition home or self-care (01) ==
LOC: SDC 04:00
PROVIDERS: Internal Medicine
DX: Z48.01 Encounter for change or removal of surgical wound dressing (principal)

== ENCOUNTER → 2017-12-26 | Day surgery (SDC) | payer OTHER | END | disposition home or self-care (01) | LOC: SDC 01:46 | DX: Z48.01 Encounter for change or removal of surgical wound dressing (principal) ==

== ENCOUNTER → 2018-01-02 | Day surgery (SDC) | payer OTHER | END | disposition home or self-care (01) | LOC: SDC 04:06 | DX: Z48.01 Encounter for change or removal of surgical wound dressing (principal); Z88.0 Allergy status to penicillin; Z88.8 Allergy status to other drugs, medicaments and biological substances ==

== ENCOUNTER → 2018-01-10 | Day surgery (SDC) | payer OTHER ==
[~2018-01-10] MED LIST changes: +ASMANEX220 MC1 INH; +CYCLOBENZAPRINE5 M3 PO; +FEROSUL325 MG PO; +LASIX40 MG PO; +METOPROLOL SUCC25 M2 PO; +MORPHINE SULFAT15 M7 PO; +TPN IV; +VIBRAMYCIN100 MG PO
== END | disposition home or self-care (01) ==
LOC: SDC 01-09 01:02
DX: Z48.01 Encounter for change or removal of surgical wound dressing (principal)

== ENCOUNTER 2018-01-14 06:26 | Inpatient (IN) | payer OTHER ==
[~2018-01-14] VITALS: Ht 157.5 cm; Wt 66.4 kg
--- NOTE | ~2018-01-14 | PROC NOTE ---
[place], [place] PROCEDURE NOTE [id number] UNIT #: [id number] ROOM: 507 DOCTOR: QUINTEN KITCHENJIM BIRTHDATE: [birth year] DOS: 01/19/2018 HISTORY OF PRESENT ILLNESS: This is a 67-year-old patient who has multiple medical problems, among which has been drop in H and H. The patient with multiple bowel surgeries and anterior abdomen occupied with multiple collecting bags of fistulization and ileostomy, total colectomy and has had drop in H and H and now latest H and H is 79 and 26.7. Her previous blood count was 7 and 24. She received transfusion. Blood cultures have been nonremarkable. Transvaginal fistulization was suspected and transvaginal sonography was done. PAST SURGICAL HISTORY: Small heterogeneous uterus. ALLERGIES: No discrete finding. SOCIAL HISTORY: Otherwise was identified. PROCEDURE: Today's procedure part of investigation of drop in H and H is panendoscopy. PREMEDICATION: Propofol. SCOPE: Olympus forward-viewing gastroscope Q10 video. REPORT: After putting the patient in left lateral position and application of lubricant to the scope, the scope was introduced. Thereafter, under direct visualization, advanced through the length of esophagus without difficulty. Distal esophageal ulceration was identified. Gastric pouch was entered. Small hiatal hernia noticed. Gastritis was seen. Antral biopsy obtained. Duodenal bulb, second and third part free of ulcer and lesion. The patient extubated after Antral biopsy obtained, tolerated procedure well. IMPRESSION: Distal esophageal ulceration A small hiatal hernia about 2 cm, gastritis, status post biopsy. PLAN AND DISCUSSION: We are going to continue with soft diet inpatient. Continue with PPI management. We already know she has hepatic steatosis. We already know that she has multiple abdominal surgeries and bowel resections and ileostomy and total colectomy and multiple enterocutaneous fistulization. Multiple small bowel anastomoses, no intraperitoneal abscess formation; however, in addition to coronary artery calcification, all has been noticed. I trust that this is the best she can be as far as management of the bowel is concerned, they should avoid further surgeries and allowing the fistulization to continue finding there were and percutaneously drained by until such a time that fibrosis happens and eventually a fistula is going to. She has had numerous surgery and further approach is going to be dangerous. [place], [place] PROCEDURE NOTE NAME: BLAS CANO UNIT #: [id number] ROOM: 507 DOCTOR: QUINTEN KITCHEN,JIM BIRTHDATE: [birth year] JIM SHIPLEY MD CM:PROCNOTE:PROCEDURE NOTE [id number] JIM SHIPLEY MD
--- NOTE | ~2018-01-14 | CON ---
[place], [place] REPORT OF CONSULTATION NAME: BLAS CANO [facility] #: [id number] UNIT #: [id number] ROOM: 507 DOCTOR: JIM SHIPLEY MD BIRTHDATE: [birth year] DOS: 01/17/2018 GASTROENDOSCOPIC CONSULTATION REPORT HISTORY OF PRESENT ILLNESS: The patient has presented with a chief complaint of shortness of breath and not feeling well, edema diffusely and the patient was admitted to the hospital and workup was followed. The patient has been anemic and I have been called for assessment of the above. PAST MEDICAL HISTORY: Complex history of bowel surgery, colitis, total colectomy, congestive heart failure, morbid obesity, chronic anemia, multiple abdominal fistula, diverticulosis, diabetes mellitus, depression, COPD, chronic back pain and coronary artery disease PAST SURGICAL HISTORY: Colectomy, ileostomy, tonsillectomy, multiple fistula management, cataracts, coronary artery stent x1, 4years ago SOCIAL HISTORY: Positive smoker. Nonalcohol consumer. FAMILY HISTORY: Noncontributory. ALLERGIES: PENICILLIN, MOXIFLOXACIN WELL AND FLUCONAZOLE. MEDICATIONS: List has been reviewed. The patient on Clopidogrel and she is telling me that she is not taking any aspirin product. REVIEW OF SYSTEMS: HEENT: Denies double vision, blurred vision. RESPIRATORY: Denies acute shortness of breath right now; however, still short of breath. CARDIOVASCULAR: Denies chest pain. DIGESTIVE SYSTEM: Ileostomy and multiple enterocutaneous fistulas and fistula bags on the abdomen. PHYSICAL EXAMINATION: GENERAL: Reveals obese patient. VITAL SIGNS: Stable and has had spike of temperature. HEENT: Head normocephalic, nontraumatic. Eyes: Pupils round, reactive. Sclerae nonicteric. Mouth and buccal mucosa edentulous. No aphthae ulcer. NECK: Supple, no thyromegaly, no cervical lymphadenopathy. CHEST: Symmetric anatomy, equal expansion. Decreased air entry in general. HEART: Normal sinus rhythm, no gallop, no murmur. On the tachycardic side about 90. ABDOMEN: Obese, multiple fistulous under the colostomy bag, ileostomy functional. She is telling me that she has vaginal bleed and we did not do a pelvic examination on her. EXTREMITIES: A 2+ edema bilaterally was noticed. NEUROLOGIC: Fully alert, oriented to time, place, person. LABORATORY DATA: Records were reviewed. Latest blood work shows H and H of 8 [place], [place] REPORT OF CONSULTATION [id number] UNIT #: [id number] ROOM: 507 DOCTOR: QUINTEN KITCHEN,[facility] BIRTHDATE: [birth year] and 26. Comprehensive metabolic panel, electrolytes balanced. GFR normal. Liver function test, alkaline phosphatase is 371 has noticed. Labs and records were reviewed. Blood cultures [address] scan of the abdomen and pelvis with contrast was reviewed with multiple anterior abdominal wall herniation again noticed similar compared to 10/2017. There are small collections in the anterior wall with presumed fistulous connection, which we know already there appears to be at least 3 possible fistulas along the anterior abdominal wall and periumbilical area. These are all established fistulas and matured and multiple small bowel anastomosis is noticed, which is consistent with multiple bowel surgeries that she has had hepatic steatosis and coronary artery calcification are known. Pelvic: There is no small bowel thickening or obstruction. There is no free fluid in the pelvic. Troponin was negative. Lipase was negative. BNP of 670+ was noticed. INR 1.2. Lactic acid 2.0. The fact that she is complaining of vaginal bleeding makes me concerned if there is antral vaginal fistulization because the way she describes it there is blood and periodically pus in her discharges and I would not be surprised at all if there is such a problem which may have been needing a pelvic examination in my recommendation. Her CT scan of the pelvic did not yield any information and her anemia is expected not only on Plavix, also with chronic blood loss is also with vaginal bleed that she is expressing in all possibilities. IMPRESSION: Multiple abdominal wall enterocutaneous fistulas, status post colectomy, status post ileostomy, fecal occult positive for sure. The only concern that we have if there is any contribution from her upper GI system otherwise the lower GI is non-assessable endoscopically. Therefore, I am going to proceed with further diuresis and stabilization of bleeding and perhaps by Monday we are going to do an EGD to ensure the upper GI is not responsible for a source of blood loss, transfusion if necessary, it is going to be taken care of it. Her H and H at the time of admission was 8.9 and 29.5 and status post drop to H and H and transfusion, workup in progress. Thank you very much indeed. Other adjunctive diagnoses as above. JIM SHIPLEY MD CM:CONSTR:REPORT OF CONSULTATION 1917 01/31/18 1418 interface
--- NOTE | ~2018-01-14 | WRIGHTHP ---
[place], [place] PATIENT HISTORY AND PHYSICAL EXAM NAME: BLAS CANO [facility] #: [id number] UNIT #: [id number] ROOM: 507 DOCTOR: KIAH SHIPLEY MDBUENA PARKHERRERA BIRTHDATE: [birth year] DOS: 01/19/2018 HISTORY OF PRESENT ILLNESS: This is a 67-year-old patient who has multiple medical problems, among which has been drop in H and H. The patient with multiple bowel surgeries and anterior abdomen occupied with multiple collecting bags of fistulization and ileostomy, total colectomy and has had drop in H and H and now latest H and H is 79 and 26.7. Her previous blood count was 7 and 24. She received transfusion. Blood cultures have been nonremarkable. Transvaginal fistulization was suspected and transvaginal sonography was done. PAST SURGICAL HISTORY: Small heterogeneous uterus. ALLERGIES: No discrete finding. SOCIAL HISTORY: Otherwise was identified. PROCEDURE: Today's procedure part of investigation of drop in H and H is panendoscopy. PREMEDICATION: Propofol. SCOPE: Olympus forward-viewing gastroscope Q10 video. REPORT: After putting the patient in left lateral position and application of lubricant to the scope, the scope was introduced. Thereafter, under direct visualization, advanced through the length of esophagus without difficulty. Distal esophageal ulceration was identified. Gastric pouch was entered. Small hiatal hernia noticed. Gastritis was seen. Antral biopsy obtained. Duodenal bulb, second and third part free of ulcer and lesion. The patient extubated after Antral biopsy obtained, tolerated procedure well. IMPRESSION: Distal esophageal ulceration A small hiatal hernia about 2 cm, gastritis, status post biopsy. PLAN AND DISCUSSION: We are going to continue with soft diet inpatient. Continue with PPI management. We already know she has hepatic steatosis. We already know that she has multiple abdominal surgeries and bowel resections and ileostomy and total colectomy and multiple enterocutaneous fistulization. Multiple small bowel anastomoses, no intraperitoneal abscess formation; however, in addition to coronary artery calcification, all has been noticed. I trust that this is the best she can be as far as management of the bowel is concerned, they should avoid further surgeries and allowing the fistulization to continue finding there were and percutaneously drained by until such a time that fibrosis happens and eventually a fistula is going to. She has had numerous surgery and further approach is going to be dangerous. [place], [place] PATIENT HISTORY AND PHYSICAL EXAM NAME: BLAS CANO UNIT #: [id number] ROOM: 507 DOCTOR: QUINTEN KITCHEN,JIM BIRTHDATE: [birth year] JIM SHIPLEY MD CM:HISPHYS:PATIENT HISTORY AND PHYSICAL EXAMINATION 1616 1655 JIM SHIPLEY MD 01/22/18 0921 EVI CURRY.TM
[~2018-01-14 06:26] MED LIST changes: -ASMANEX220 MC1 INH; -CYCLOBENZAPRINE5 M3 PO; -FEROSUL325 MG PO; -LASIX40 MG PO; -METOPROLOL SUCC25 M2 PO; -MORPHINE SULFAT15 M7 PO; -MUCINEX ER600 MG PO; -NEXIUM 24HR20 M1 PO; -PREDNISONE10 MG PO; -TPN IV; -VIBRAMYCIN100 MG PO
[2018-01-14 06:52] VITALS: BP 125/52
[2018-01-14 07:05] LABS: BASO % 0.3 % (0.0-1.0); EOS # 0.1 10*3/uL (0.0-0.4); EOS % 0.6 % (1.0-4.0); HEMATOCRIT 29.5 % (37.0-47.0); HEMOGLOBIN 8.9 g/dl (12.0-16.0); LYMPH # 0.4 10*3/uL (1.3-4.4); LYMPH % 3.7 % (27.0-41.0); MEAN CELL VOLUME 93.1 fl (81.0-99.0); MEAN CORPUSCULAR HGB 28.1 pg (27.0-31.0); MEAN CORPUSCULAR HGB CONC 30.2 g/dl (33.0-37.0); MEAN PLATELET VOLUME 9.9 fl (9.6-12.3); MONO # 0.8 10*3/uL (0.1-1.0); NEUT # 9.4 10*3/uL (2.3-7.9); PLATELET COUNT AUTOMATED 214 10*3/uL (130-400); RED BLOOD COUNT 3.17 10*6/uL (4.10-5.10); RED CELL DISTRI WIDTH 13.7 % (0-14.5); WHITE BLOOD COUNT 10.7 10*3/uL (4.8-10.8)
[2018-01-14 07:12] LABS: ACT PARTIAL THROMBO TIME 26.3 SECONDS (20.8-31.5); INTERNATIONAL NORM RATIO 1.2 (2.0-3.5)
[2018-01-14 07:20] LABS: ALBUMIN 2.1 gm/dl (3.1-4.5); ALKALINE PHOSPHATASE 595 U/L (45-117); BUN 29 mg/dl (7-24); CHLORIDE 103 mmol/L (98-107); CREATININE 0.87 mg/dL (0.55-1.02); SGOT/AST 68 IU/L (3-35); SGPT/ALT 71 U/L (12-78); SODIUM 139 mmol/L (136-145); TOTAL PROTEIN 6.4 gm/dL (6.4-8.2); TROPONIN I < 0.015 ng/ml (<0.045)
[2018-01-14 08:42] LABS: BILIRUBIN NEGATIVE (NEGATIVE); BLOOD NEGATIVE (NEGATIVE); CLARITY CLEAR (CLEAR); COLOR YELLOW (YELLOW); GLUCOSE NEGATIVE (NEGATIVE); KETONE NEGATIVE (NEGATIVE); LEUKO ESTERASE NEGATIVE (NEGATIVE); NITRITE NEGATIVE (NEGATIVE); UROBILINOGEN 0.2 E.U./dl (0.2-1.0)
[2018-01-14 08:51] LABS: BACTERIA TRACE; MUCOUS 1+
[2018-01-14 08:53] VITALS: BP 90/38
[2018-01-14 09:15] VITALS: BP 92/46
[2018-01-14 12:00] VITALS: BP 96/37
[2018-01-14 20:00] VITALS: BP 82/40; BP 87/26
[2018-01-15] VITALS: BP 103/70; BP 116/66
[2018-01-15 06:44] LABS: HEMATOCRIT 24.1 % (37.0-47.0); MEAN CELL VOLUME 94.9 fl (81.0-99.0); MEAN CORPUSCULAR HGB 27.6 pg (27.0-31.0); MEAN PLATELET VOLUME 10.5 fl (9.6-12.3); PLATELET COUNT AUTOMATED 162 10*3/uL (130-400); RED BLOOD COUNT 2.54 10*6/uL (4.10-5.10); WHITE BLOOD COUNT 7.1 10*3/uL (4.8-10.8)
[2018-01-15 07:07] LABS: TOTAL CELLS COUNTED 100 #CELLS
[2018-01-15 07:08] LABS: PLATELET SUFFICIENCY NORMAL (NORMAL); POLYCHROMASIA SLIGHT
[2018-01-15 07:16] LABS: ALBUMIN 1.7 gm/dl (3.1-4.5); ALKALINE PHOSPHATASE 457 U/L (45-117); BUN 25 mg/dl (7-24); CHLORIDE 108 mmol/L (98-107); CREATININE 0.83 mg/dL (0.55-1.02); PHOSPHOROUS 3.1 mg/dL (2.5-4.9); POTASSIUM 4.1 mmol/L (3.5-5.1); SGOT/AST 38 IU/L (3-35); SGPT/ALT 55 U/L (12-78); SODIUM 141 mmol/L (136-145); TOTAL PROTEIN 5.4 gm/dL (6.4-8.2)
[2018-01-15 08:00] VITALS: BP 104/44
[2018-01-15 12:00] VITALS: BP 94/50
[2018-01-15 16:00] VITALS: BP 96/32
[2018-01-15 20:00] VITALS: BP 100/41
[2018-01-16] VITALS (20 sets, daily range): BP systolic 78–122; BP diastolic 34–77
[2018-01-16 06:42] LABS: HEMOGLOBIN 6.7 g/dl (12.0-16.0); MEAN CELL VOLUME 94.7 fl (81.0-99.0); MEAN CORPUSCULAR HGB 27.6 pg (27.0-31.0); MEAN CORPUSCULAR HGB CONC 29.1 g/dl (33.0-37.0); MEAN PLATELET VOLUME 11.1 fl (9.6-12.3); PLATELET COUNT AUTOMATED 170 10*3/uL (130-400); RED BLOOD COUNT 2.43 10*6/uL (4.10-5.10); RED CELL DISTRI WIDTH 14.3 % (0-14.5); WHITE BLOOD COUNT 6.2 10*3/uL (4.8-10.8)
[2018-01-16 06:53] LABS: ALBUMIN 1.8 gm/dl (3.1-4.5); ALKALINE PHOSPHATASE 396 U/L (45-117); CHLORIDE 107 mmol/L (98-107); CREATININE 0.89 mg/dL (0.55-1.02); PHOSPHOROUS 3.1 mg/dL (2.5-4.9); POTASSIUM 4.9 mmol/L (3.5-5.1); SGOT/AST 22 IU/L (3-35); SGPT/ALT 43 U/L (12-78); SODIUM 141 mmol/L (136-145); TOTAL PROTEIN 5.4 gm/dL (6.4-8.2)
[2018-01-16 06:58] LABS: BUN 38 mg/dl (7-24)
[2018-01-16 07:40] LABS: PLATELET SUFFICIENCY NORMAL (NORMAL); TOTAL CELLS COUNTED 100 #CELLS
[2018-01-16 17:48] LABS: BASO % 0.1 % (0.0-1.0); HEMATOCRIT 28.1 % (37.0-47.0); HEMOGLOBIN 8.6 g/dl (12.0-16.0); LYMPH # 0.7 10*3/uL (1.3-4.4); LYMPH % 7.5 % (27.0-41.0); MEAN CORPUSCULAR HGB 27.5 pg (27.0-31.0); MEAN CORPUSCULAR HGB CONC 30.6 g/dl (33.0-37.0); MEAN PLATELET VOLUME 10.1 fl (9.6-12.3); MONO # 0.6 10*3/uL (0.1-1.0); MONO % 6.4 % (3.0-9.0); NEUT # 7.4 10*3/uL (2.3-7.9); NEUT % 85.2 % (47.0-73.0); RED BLOOD COUNT 3.13 10*6/uL (4.10-5.10); RED CELL DISTRI WIDTH 16.7 % (0-14.5); WHITE BLOOD COUNT 8.6 10*3/uL (4.8-10.8)
[2018-01-16 17:54] LABS: MEAN CELL VOLUME 89.8 fl (81.0-99.0); PLATELET COUNT AUTOMATED 223 10*3/uL (130-400)
[2018-01-17] VITALS: BP 108/57
[2018-01-17 06:57] LABS: BASO % 0.1 % (0.0-1.0); HEMATOCRIT 26.5 % (37.0-47.0); HEMOGLOBIN 8.1 g/dl (12.0-16.0); LYMPH # 0.4 10*3/uL (1.3-4.4); LYMPH % 4.3 % (27.0-41.0); MEAN CELL VOLUME 91.4 fl (81.0-99.0); MEAN CORPUSCULAR HGB 27.9 pg (27.0-31.0); MEAN CORPUSCULAR HGB CONC 30.6 g/dl (33.0-37.0); MEAN PLATELET VOLUME 10.3 fl (9.6-12.3); MONO # 0.4 10*3/uL (0.1-1.0); MONO % 5.1 % (3.0-9.0); NEUT # 7.3 10*3/uL (2.3-7.9); NEUT % 88.8 % (47.0-73.0); PLATELET COUNT AUTOMATED 194 10*3/uL (130-400); RED CELL DISTRI WIDTH 16.4 % (0-14.5); WHITE BLOOD COUNT 8.2 10*3/uL (4.8-10.8)
[2018-01-17 07:34] LABS: BUN 46 mg/dl (7-24); CHLORIDE 106 mmol/L (98-107); CREATININE 0.87 mg/dL (0.55-1.02); POTASSIUM 4.6 mmol/L (3.5-5.1); SGOT/AST 30 IU/L (3-35); SGPT/ALT 46 U/L (12-78); SODIUM 144 mmol/L (136-145)
[2018-01-17 07:36] LABS: ALKALINE PHOSPHATASE 371 U/L (45-117); PHOSPHOROUS 3.4 mg/dL (2.5-4.9); TOTAL PROTEIN 5.5 gm/dL (6.4-8.2)
[2018-01-17 08:00] VITALS: BP 114/45
[2018-01-17 12:00] VITALS: BP 94/50
[2018-01-17 16:00] VITALS: BP 101/47
[2018-01-17 20:00] VITALS: BP 112/68
[2018-01-18] VITALS: BP 123/47
[2018-01-18 07:19] LABS: HEMATOCRIT 27.4 % (37.0-47.0); HEMOGLOBIN 8.3 g/dl (12.0-16.0); LYMPH # 0.5 10*3/uL (1.3-4.4); LYMPH % 5.7 % (27.0-41.0); MEAN CELL VOLUME 91.3 fl (81.0-99.0); MEAN CORPUSCULAR HGB 27.7 pg (27.0-31.0); MEAN CORPUSCULAR HGB CONC 30.3 g/dl (33.0-37.0); MEAN PLATELET VOLUME 10.7 fl (9.6-12.3); MONO # 0.5 10*3/uL (0.1-1.0); NEUT # 8.1 10*3/uL (2.3-7.9); NEUT % 88.6 % (47.0-73.0); PLATELET COUNT AUTOMATED 237 10*3/uL (130-400); RED CELL DISTRI WIDTH 15.4 % (0-14.5); WHITE BLOOD COUNT 9.1 10*3/uL (4.8-10.8)
[2018-01-18 08:00] VITALS: BP 107/48
[2018-01-18 08:07] LABS: CHLORIDE 101 mmol/L (98-107); POTASSIUM 4.2 mmol/L (3.5-5.1); SODIUM 142 mmol/L (136-145)
[2018-01-18 08:08] LABS: BUN 59 mg/dl (7-24); CREATININE 0.97 mg/dL (0.55-1.02); PHOSPHOROUS 4.1 mg/dL (2.5-4.9)
[2018-01-18 12:00] VITALS: BP 116/59
[2018-01-18 16:00] VITALS: BP 120/76
[2018-01-18 18:00] VITALS: BP 120/76
[2018-01-18 20:00] VITALS: BP 103/51
[2018-01-19] VITALS (10 sets, daily range): BP systolic 100–120; BP diastolic 50–71
[2018-01-19 06:24] LABS: HEMATOCRIT 26.7 % (37.0-47.0); HEMOGLOBIN 7.9 g/dl (12.0-16.0); LYMPH # 0.4 10*3/uL (1.3-4.4); LYMPH % 5.2 % (27.0-41.0); MEAN CELL VOLUME 92.1 fl (81.0-99.0); MEAN CORPUSCULAR HGB 27.2 pg (27.0-31.0); MEAN CORPUSCULAR HGB CONC 29.6 g/dl (33.0-37.0); MEAN PLATELET VOLUME 10.5 fl (9.6-12.3); MONO # 0.4 10*3/uL (0.1-1.0); NEUT # 7.4 10*3/uL (2.3-7.9); NEUT % 89.1 % (47.0-73.0); PLATELET COUNT AUTOMATED 207 10*3/uL (130-400); RED CELL DISTRI WIDTH 15.1 % (0-14.5); WHITE BLOOD COUNT 8.3 10*3/uL (4.8-10.8)
[2018-01-19 07:07] LABS: BUN 60 mg/dl (7-24); CHLORIDE 104 mmol/L (98-107); POTASSIUM 4.6 mmol/L (3.5-5.1); SODIUM 144 mmol/L (136-145)
[2018-01-19 07:11] LABS: CREATININE 0.87 mg/dL (0.55-1.02)
[2018-01-20] VITALS (7 sets, daily range): BP systolic 102–115; BP diastolic 47–66
[2018-01-20 07:10] LABS: ALBUMIN 2.3 gm/dl (3.1-4.5); ALKALINE PHOSPHATASE 385 U/L (45-117); BUN 59 mg/dl (7-24); CHLORIDE 105 mmol/L (98-107); PHOSPHOROUS 4.1 mg/dL (2.5-4.9); POTASSIUM 4.5 mmol/L (3.5-5.1); SGOT/AST 140 IU/L (3-35); SGPT/ALT 132 U/L (12-78); SODIUM 144 mmol/L (136-145); TOTAL PROTEIN 5.4 gm/dL (6.4-8.2)
[2018-01-21] VITALS: BP 116/48
[2018-01-21 06:56] LABS: EOS % 0.3 % (1.0-4.0); HEMATOCRIT 25.4 % (37.0-47.0); HEMOGLOBIN 7.5 g/dl (12.0-16.0); LYMPH % 8.7 % (27.0-41.0); MEAN CELL VOLUME 95.1 fl (81.0-99.0); MEAN CORPUSCULAR HGB 28.1 pg (27.0-31.0); MEAN CORPUSCULAR HGB CONC 29.5 g/dl (33.0-37.0); MEAN PLATELET VOLUME 10.3 fl (9.6-12.3); MONO # 0.8 10*3/uL (0.1-1.0); MONO % 6.8 % (3.0-9.0); NEUT # 9.9 10*3/uL (2.3-7.9); NEUT % 83.4 % (47.0-73.0); PLATELET COUNT AUTOMATED 205 10*3/uL (130-400); RED BLOOD COUNT 2.67 10*6/uL (4.10-5.10); RED CELL DISTRI WIDTH 14.9 % (0-14.5); WHITE BLOOD COUNT 11.9 10*3/uL (4.8-10.8)
[2018-01-21 07:26] LABS: BUN 54 mg/dl (7-24); CHLORIDE 109 mmol/L (98-107); POTASSIUM 4.2 mmol/L (3.5-5.1); SGPT/ALT 149 U/L (12-78); SODIUM 144 mmol/L (136-145)
[2018-01-21 07:44] LABS: ALKALINE PHOSPHATASE 320 U/L (45-117); CREATININE 0.81 mg/dL (0.55-1.02); SGOT/AST 119 IU/L (3-35); TOTAL PROTEIN 4.7 gm/dL (6.4-8.2)
[2018-01-21 08:00] VITALS: BP 102/46
[2018-01-21 12:00] VITALS: BP 110/57
[2018-01-21 16:00] VITALS: BP 102/44
[2018-01-21 20:00] VITALS: BP 111/48
[2018-01-22] VITALS: BP 107/49
[2018-01-22 06:59] LABS: BASO % 0.1 % (0.0-1.0); EOS # 0.1 10*3/uL (0.0-0.4); HEMATOCRIT 27.9 % (37.0-47.0); HEMOGLOBIN 8.1 g/dl (12.0-16.0); LYMPH # 1.4 10*3/uL (1.3-4.4); MEAN CELL VOLUME 95.5 fl (81.0-99.0); MEAN CORPUSCULAR HGB 27.7 pg (27.0-31.0); MEAN PLATELET VOLUME 10.8 fl (9.6-12.3); MONO # 0.8 10*3/uL (0.1-1.0); NEUT # 10.6 10*3/uL (2.3-7.9); NEUT % 81.4 % (47.0-73.0); PLATELET COUNT AUTOMATED 242 10*3/uL (130-400); RED BLOOD COUNT 2.92 10*6/uL (4.10-5.10); WHITE BLOOD COUNT 13.1 10*3/uL (4.8-10.8)
[2018-01-22 08:00] VITALS: BP 105/45
[2018-01-22] MEDS ORDERED: NEXIUM 24HR20 M1 PO (10:22)
[2018-01-22] MEDS ORDERED: MUCINEX ER600 MG PO (10:24)
[2018-01-22] MEDS ORDERED: PREDNISONE10 MG PO (10:54)
[2018-01-22 11:27] LABS: BUN 51 mg/dl (7-24); CHLORIDE 108 mmol/L (98-107); CREATININE 0.77 mg/dL (0.55-1.02); PHOSPHOROUS 2.7 mg/dL (2.5-4.9); POTASSIUM 4.9 mmol/L (3.5-5.1); SODIUM 144 mmol/L (136-145)
[2018-01-22 12:00] VITALS: BP 102/44
[2018-02-23] MEDS ORDERED: LASIX40 MG PO (15:05)
[2018-02-23] MEDS ORDERED: ASMANEX220 MC1 INH (15:07)
[2018-03-02] MEDS ORDERED: METOPROLOL SUCC25 M2 PO (13:03)
[2018-03-02] MEDS ORDERED: MORPHINE SULFAT15 M7 PO (13:03)
[2018-03-02] MEDS ORDERED: VIBRAMYCIN100 MG PO (13:03)
[2018-03-02] MEDS ORDERED: FEROSUL325 MG PO (13:03)
[2018-03-02] MEDS ORDERED: CYCLOBENZAPRINE5 M3 PO (13:03)
[2018-03-02] MEDS ORDERED: PREDNISONE10 MG PO (13:03)
[2018-03-03] MEDS ORDERED: TPN IV (13:56)
== END 2018-01-22 14:11 | disposition home or self-care (01) | DRG 871 ==
LOC: ED 06:26 → EDHOLD 08:24 → 5E 08:24
PROVIDERS: Family Medicine; Internal Medicine; Internal Medicine Nephrology; Student in an Organized Health Care Education/Training Program
PROC: 30233N1 Transfusion of Nonautologous Red Blood Cells into Peripheral Vein, Percutaneous Approach (ICD-10-PCS; principal; 2018-01-16)
PROC: B5181ZA Fluoroscopy of Superior Vena Cava using Low Osmolar Contrast, Guidance (ICD-10-PCS; principal; 2018-01-16)
PROC: 02HV33Z Insertion of Infusion Device into Superior Vena Cava, Percutaneous Approach (ICD-10-PCS; principal; 2018-01-16)
PROC: 0JH63XZ Insertion of Tunneled Vascular Access Device into Chest Subcutaneous Tissue and Fascia, Percutaneous Approach (ICD-10-PCS; principal; 2018-01-16)
PROC: 0DB68ZX Excision of Stomach, Via Natural or Artificial Opening Endoscopic, Diagnostic (ICD-10-PCS; 2018-01-19)
DX: A41.9 Sepsis, unspecified organism (principal); J18.9 Pneumonia, unspecified organism; E43 Unspecified severe protein-calorie malnutrition; K22.11 Ulcer of esophagus with bleeding; I11.0 Hypertensive heart disease with heart failure; K26.4 Chronic or unspecified duodenal ulcer with hemorrhage; K63.2 Fistula of intestine; I50.22 Chronic systolic (congestive) heart failure; K57.91 Diverticulosis of intestine, part unspecified, without perforation or abscess with bleeding; K29.71 Gastritis, unspecified, with bleeding; J44.0 Chronic obstructive pulmonary disease with (acute) lower respiratory infection; J44.1 Chronic obstructive pulmonary disease with (acute) exacerbation; E11.36 Type 2 diabetes mellitus with diabetic cataract; E11.65 Type 2 diabetes mellitus with hyperglycemia; E83.51 Hypocalcemia; D63.8 Anemia in other chronic diseases classified elsewhere; E78.5 Hyperlipidemia, unspecified; G89.29 Other chronic pain; K44.9 Diaphragmatic hernia without obstruction or gangrene; I25.10 Atherosclerotic heart disease of native coronary artery without angina pectoris; M81.0 Age-related osteoporosis without current pathological fracture; F32.9 Major depressive disorder, single episode, unspecified; I25.2 Old myocardial infarction; Z93.3 Colostomy status; Z87.891 Personal history of nicotine dependence; Z88.0 Allergy status to penicillin; Z88.8 Allergy status to other drugs, medicaments and biological substances; Z93.2 Ileostomy status; Z79.899 Other long term (current) drug therapy; Z90.89 Acquired absence of other organs; Z98.61 Coronary angioplasty status; Z90.49 Acquired absence of other specified parts of digestive tract; Z82.49 Family history of ischemic heart disease and other diseases of the circulatory system; Z83.6 Family history of other diseases of the respiratory system; Z68.26 Body mass index [BMI] 26.0-26.9, adult

== ENCOUNTER → 2018-01-23 | Day surgery (SDC) | payer OTHER ==
[~2018-01-23] MED LIST changes: +ASMANEX220 MC1 INH; +CYCLOBENZAPRINE5 M3 PO; +FEROSUL325 MG PO; +LASIX40 MG PO; +METOPROLOL SUCC25 M2 PO; +MORPHINE SULFAT15 M7 PO; +MUCINEX ER600 MG PO; +NEXIUM 24HR20 M1 PO; +PREDNISONE10 MG PO; +TPN IV; +VIBRAMYCIN100 MG PO
== END ==
LOC: SDC 03:08
DX: Z48.01 Encounter for change or removal of surgical wound dressing (principal)

== ENCOUNTER → 2018-01-30 | Day surgery (SDC) | payer OTHER ==
[2018-01-30 11:27] LABS: BASO % 0.1 % (0.0-1.0); EOS # 0.1 10*3/uL (0.0-0.4); EOS % 1.1 % (1.0-4.0); HEMOGLOBIN 8.3 g/dl (12.0-16.0); LYMPH # 0.7 10*3/uL (1.3-4.4); LYMPH % 9.6 % (27.0-41.0); MEAN CELL VOLUME 96.2 fl (81.0-99.0); MEAN CORPUSCULAR HGB 28.5 pg (27.0-31.0); MEAN CORPUSCULAR HGB CONC 29.6 g/dl (33.0-37.0); MONO # 0.7 10*3/uL (0.1-1.0); MONO % 10.6 % (3.0-9.0); NEUT # 5.5 10*3/uL (2.3-7.9); NEUT % 77.9 % (47.0-73.0); PLATELET COUNT AUTOMATED 111 10*3/uL (130-400); RED BLOOD COUNT 2.91 10*6/uL (4.10-5.10); RED CELL DISTRI WIDTH 16.8 % (0-14.5)
[2018-01-30 11:58] LABS: ALBUMIN 2.4 gm/dl (3.1-4.5); ALKALINE PHOSPHATASE 584 U/L (45-117); BUN 42 mg/dl (7-24); CHLORIDE 106 mmol/L (98-107); CREATININE 0.73 mg/dL (0.55-1.02); IRON 18 ug/dL (50-170); POTASSIUM 4.7 mmol/L (3.5-5.1); SGOT/AST 154 IU/L (3-35); SGPT/ALT 294 U/L (12-78); SODIUM 143 mmol/L (136-145); TOTAL IRON BINDING CAPACITY 231 ug/dl (250-450); TOTAL PROTEIN 5.5 gm/dL (6.4-8.2)
[2018-01-30 12:00] LABS: INTERNATIONAL NORM RATIO 1.1 (2.0-3.5)
[2018-02-01 18:03] LABS: MANGANESE WHOLE BLOOD 27.4 ug/L (8.0-18.7)
== END | disposition home or self-care (01) ==
LOC: SDC 03:53
PROVIDERS: Internal Medicine
DX: Z48.01 Encounter for change or removal of surgical wound dressing (principal); Z79.01 Long term (current) use of anticoagulants; Z88.1 Allergy status to other antibiotic agents; Z88.0 Allergy status to penicillin; E44.0 Moderate protein-calorie malnutrition

== ENCOUNTER → 2018-02-06 | Day surgery (SDC) | payer OTHER | END | disposition home or self-care (01) | LOC: SDC 02:46 | DX: Z48.01 Encounter for change or removal of surgical wound dressing (principal) ==

== ENCOUNTER → 2018-02-20 | Day surgery (SDC) | payer OTHER ==
[2018-02-20 11:16] LABS: BASO % 0.3 % (0.0-1.0); EOS % 0.4 % (1.0-4.0); HEMATOCRIT 28.6 % (37.0-47.0); HEMOGLOBIN 8.4 g/dl (12.0-16.0); LYMPH % 9.2 % (27.0-41.0); MEAN CELL VOLUME 97.6 fl (81.0-99.0); MEAN CORPUSCULAR HGB 28.7 pg (27.0-31.0); MEAN CORPUSCULAR HGB CONC 29.4 g/dl (33.0-37.0); MEAN PLATELET VOLUME 11.3 fl (9.6-12.3); MONO # 0.6 10*3/uL (0.1-1.0); MONO % 5.5 % (3.0-9.0); NEUT # 9.1 10*3/uL (2.3-7.9); NEUT % 83.3 % (47.0-73.0); PLATELET COUNT AUTOMATED 221 10*3/uL (130-400); RED BLOOD COUNT 2.93 10*6/uL (4.10-5.10); RED CELL DISTRI WIDTH 17.6 % (0-14.5); WHITE BLOOD COUNT 10.9 10*3/uL (4.8-10.8)
[2018-02-20 11:39] LABS: ALKALINE PHOSPHATASE 537 U/L (45-117); BUN 40 mg/dl (7-24); CHLORIDE 101 mmol/L (98-107); CREATININE 0.88 mg/dL (0.55-1.02); POTASSIUM 4.2 mmol/L (3.5-5.1); PREALBUMIN 15 mg/dl (20-40); SGOT/AST 155 IU/L (3-35); SGPT/ALT 114 U/L (12-78); SODIUM 138 mmol/L (136-145); TOTAL PROTEIN 6.7 gm/dL (6.4-8.2)
== END | disposition home or self-care (01) ==
LOC: SDC 04:24
PROVIDERS: Internal Medicine
DX: Z48.01 Encounter for change or removal of surgical wound dressing (principal); Z88.1 Allergy status to other antibiotic agents; Z88.3 Allergy status to other anti-infective agents; Z88.0 Allergy status to penicillin

== ENCOUNTER → 2018-03-21 | Outpatient (CLI) | payer OTHER ==
[2018-03-21 11:17] LABS: BASO % 0.1 % (0.0-1.0); EOS # 0.1 10*3/uL (0.0-0.4); EOS % 0.7 % (1.0-4.0); HEMATOCRIT 36.2 % (37.0-47.0); HEMOGLOBIN 11.2 g/dl (12.0-16.0); LYMPH # 1.4 10*3/uL (1.3-4.4); LYMPH % 10.5 % (27.0-41.0); MEAN CELL VOLUME 95.8 fl (81.0-99.0); MEAN CORPUSCULAR HGB 29.6 pg (27.0-31.0); MEAN CORPUSCULAR HGB CONC 30.9 g/dl (33.0-37.0); MONO # 0.8 10*3/uL (0.1-1.0); MONO % 6.3 % (3.0-9.0); NEUT # 10.5 10*3/uL (2.3-7.9); NEUT % 81.3 % (47.0-73.0); PLATELET COUNT AUTOMATED 142 10*3/uL (130-400); RED BLOOD COUNT 3.78 10*6/uL (4.10-5.10); RED CELL DISTRI WIDTH 18.7 % (0-14.5); WHITE BLOOD COUNT 12.9 10*3/uL (4.8-10.8)
[2018-03-21 11:31] LABS: ALBUMIN 2.7 gm/dl (3.1-4.5); ALKALINE PHOSPHATASE 417 U/L (45-117); BUN 43 mg/dl (7-24); CHLORIDE 103 mmol/L (98-107); CREATININE 0.65 mg/dL (0.55-1.02); PHOSPHOROUS 2.3 mg/dL (2.5-4.9); POTASSIUM 4.4 mmol/L (3.5-5.1); SGOT/AST 332 IU/L (3-35); SGPT/ALT 559 U/L (12-78); SODIUM 138 mmol/L (136-145); TOTAL PROTEIN 5.9 gm/dL (6.4-8.2); TRIGLYCERIDES 208 mg/dl (<150)
== END | disposition home or self-care (01) ==
LOC: EDSTATUS 11:00 → SDC 11:00 → LAB 11:00
PROVIDERS: Family Medicine
DX: K50.813 Crohn's disease of both small and large intestine with fistula (principal); E11.9 Type 2 diabetes mellitus without complications; I24.0 Acute coronary thrombosis not resulting in myocardial infarction; I10 Essential (primary) hypertension

== ENCOUNTER → 2018-03-27 | Day surgery (SDC) | payer OTHER ==
[2018-03-27 11:27] LABS: BASO % 0.3 % (0.0-1.0); EOS # 0.2 10*3/uL (0.0-0.4); EOS % 1.5 % (1.0-4.0); HEMATOCRIT 34.1 % (37.0-47.0); HEMOGLOBIN 10.4 g/dl (12.0-16.0); LYMPH # 0.9 10*3/uL (1.3-4.4); LYMPH % 8.6 % (27.0-41.0); MEAN CELL VOLUME 97.2 fl (81.0-99.0); MEAN CORPUSCULAR HGB 29.6 pg (27.0-31.0); MEAN CORPUSCULAR HGB CONC 30.5 g/dl (33.0-37.0); MEAN PLATELET VOLUME 13.7 fl (9.6-12.3); MONO # 0.6 10*3/uL (0.1-1.0); MONO % 5.7 % (3.0-9.0); NEUT # 8.6 10*3/uL (2.3-7.9); NEUT % 82.5 % (47.0-73.0); PLATELET COUNT AUTOMATED 127 10*3/uL (130-400); RED BLOOD COUNT 3.51 10*6/uL (4.10-5.10); RED CELL DISTRI WIDTH 18.5 % (0-14.5); WHITE BLOOD COUNT 10.4 10*3/uL (4.8-10.8)
[2018-03-27 12:00] LABS: ALBUMIN 2.4 gm/dl (3.1-4.5); ALKALINE PHOSPHATASE 356 U/L (45-117); BUN 40 mg/dl (7-24); CHLORIDE 103 mmol/L (98-107); CREATININE 0.69 mg/dL (0.55-1.02); POTASSIUM 4.3 mmol/L (3.5-5.1); SGOT/AST 178 IU/L (3-35); SGPT/ALT 302 U/L (12-78); SODIUM 140 mmol/L (136-145); TOTAL PROTEIN 5.6 gm/dL (6.4-8.2)
== END | disposition home or self-care (01) ==
LOC: SDC 02:02
PROVIDERS: Internal Medicine Gastroenterology
DX: Z48.01 Encounter for change or removal of surgical wound dressing (principal); Z88.1 Allergy status to other antibiotic agents; Z88.3 Allergy status to other anti-infective agents; Z88.0 Allergy status to penicillin

== ENCOUNTER → 2018-03-29 | Outpatient (CLI) | payer OTHER | END | disposition home or self-care (01) | LOC: CT 03:25 | DX: M43.8X4 Other specified deforming dorsopathies, thoracic region (principal); R94.5 Abnormal results of liver function studies; R17 Unspecified jaundice ==

== ENCOUNTER → 2018-04-03 | Day surgery (SDC) | payer OTHER | END | disposition home or self-care (01) | LOC: SDC 03:48 | DX: Z48.01 Encounter for change or removal of surgical wound dressing (principal); Z88.1 Allergy status to other antibiotic agents; Z88.0 Allergy status to penicillin ==

== ENCOUNTER → 2018-04-10 | Day surgery (SDC) | payer OTHER | END | disposition home or self-care (01) | LOC: SDC 01:09 | DX: Z48.01 Encounter for change or removal of surgical wound dressing (principal); Z88.1 Allergy status to other antibiotic agents; Z88.0 Allergy status to penicillin ==

== ENCOUNTER → 2018-04-13 | Outpatient (CLI) | payer OTHER | END | disposition home or self-care (01) | LOC: MRI 03:49 | DX: R94.5 Abnormal results of liver function studies (principal); R17 Unspecified jaundice; Z90.49 Acquired absence of other specified parts of digestive tract; I10 Essential (primary) hypertension; E11.9 Type 2 diabetes mellitus without complications; I25.10 Atherosclerotic heart disease of native coronary artery without angina pectoris ==

== ENCOUNTER → 2018-04-17 | Day surgery (SDC) | payer OTHER ==
[2018-04-17 11:21] LABS: BASO # 0.1 10*3/uL (0.0-0.1); BASO % 0.5 % (0.0-1.0); EOS % 0.4 % (1.0-4.0); HEMATOCRIT 33.7 % (37.0-47.0); HEMOGLOBIN 10.8 g/dl (12.0-16.0); LYMPH # 1.6 10*3/uL (1.3-4.4); LYMPH % 16.9 % (27.0-41.0); MEAN CELL VOLUME 97.1 fl (81.0-99.0); MEAN CORPUSCULAR HGB 31.1 pg (27.0-31.0); MEAN PLATELET VOLUME 10.7 fl (9.6-12.3); MONO # 0.7 10*3/uL (0.1-1.0); NEUT # 6.6 10*3/uL (2.3-7.9); NEUT % 71.9 % (47.0-73.0); PLATELET COUNT AUTOMATED 316 10*3/uL (130-400); RED BLOOD COUNT 3.47 10*6/uL (4.10-5.10); RED CELL DISTRI WIDTH 17.3 % (0-14.5); WHITE BLOOD COUNT 9.2 10*3/uL (4.8-10.8)
[2018-04-17 11:55] LABS: ALBUMIN 2.6 gm/dl (3.1-4.5); ALKALINE PHOSPHATASE 591 U/L (45-117); BUN 37 mg/dl (7-24); CHLORIDE 103 mmol/L (98-107); CREATININE 0.63 mg/dL (0.55-1.02); POTASSIUM 4.1 mmol/L (3.5-5.1); SGOT/AST 86 IU/L (3-35); SGPT/ALT 111 U/L (12-78); SODIUM 142 mmol/L (136-145); TOTAL PROTEIN 6.6 gm/dL (6.4-8.2); TRIGLYCERIDES 248 mg/dl (<150)
== END | disposition home or self-care (01) ==
LOC: SDC 04:23
PROVIDERS: Family Medicine
DX: Z48.01 Encounter for change or removal of surgical wound dressing (principal); Z88.1 Allergy status to other antibiotic agents; Z88.0 Allergy status to penicillin

== ENCOUNTER → 2018-04-24 | Day surgery (SDC) | payer OTHER | END | disposition home or self-care (01) | LOC: SDC 02:48 | DX: Z48.01 Encounter for change or removal of surgical wound dressing (principal); Z88.1 Allergy status to other antibiotic agents; Z88.0 Allergy status to penicillin ==

== ENCOUNTER → 2018-05-01 | Day surgery (SDC) | payer OTHER | END | disposition home or self-care (01) | LOC: SDC 01:08 | DX: Z48.01 Encounter for change or removal of surgical wound dressing (principal); Z88.1 Allergy status to other antibiotic agents; Z88.0 Allergy status to penicillin ==

== ENCOUNTER → 2018-05-15 | Day surgery (SDC) | payer OTHER | END | disposition home or self-care (01) | LOC: SDC 00:40 | DX: Z48.01 Encounter for change or removal of surgical wound dressing (principal); Z88.1 Allergy status to other antibiotic agents; Z88.0 Allergy status to penicillin ==

== ENCOUNTER → 2018-05-22 | Day surgery (SDC) | payer OTHER ==
[2018-05-22 11:29] LABS: BASO % 0.4 % (0.0-1.0); EOS # 0.1 10*3/uL (0.0-0.4); EOS % 1.5 % (1.0-4.0); HEMATOCRIT 32.4 % (37.0-47.0); HEMOGLOBIN 10.5 g/dl (12.0-16.0); LYMPH # 1.1 10*3/uL (1.3-4.4); LYMPH % 12.6 % (27.0-41.0); MEAN CELL VOLUME 97.9 fl (81.0-99.0); MEAN CORPUSCULAR HGB 31.7 pg (27.0-31.0); MEAN CORPUSCULAR HGB CONC 32.4 g/dl (33.0-37.0); MEAN PLATELET VOLUME 10.6 fl (9.6-12.3); MONO # 0.6 10*3/uL (0.1-1.0); MONO % 6.8 % (3.0-9.0); NEUT # 6.7 10*3/uL (2.3-7.9); NEUT % 78.3 % (47.0-73.0); PLATELET COUNT AUTOMATED 208 10*3/uL (130-400); RED BLOOD COUNT 3.31 10*6/uL (4.10-5.10); RED CELL DISTRI WIDTH 14.3 % (0-14.5); WHITE BLOOD COUNT 8.5 10*3/uL (4.8-10.8)
[2018-05-22 11:57] LABS: ALBUMIN 2.3 gm/dl (3.1-4.5); ALKALINE PHOSPHATASE 557 U/L (45-117); BUN 35 mg/dl (7-24); CHLORIDE 103 mmol/L (98-107); CREATININE 0.83 mg/dL (0.55-1.02); PHOSPHOROUS 3.3 mg/dL (2.5-4.9); POTASSIUM 4.2 mmol/L (3.5-5.1); SGOT/AST 87 IU/L (3-35); SGPT/ALT 87 U/L (12-78); SODIUM 138 mmol/L (136-145); TOTAL PROTEIN 6.4 gm/dL (6.4-8.2); TRIGLYCERIDES 109 mg/dl (<150)
== END | disposition home or self-care (01) ==
LOC: SDC 05:29
PROVIDERS: Family Medicine
DX: Z48.01 Encounter for change or removal of surgical wound dressing (principal); Z88.1 Allergy status to other antibiotic agents; Z88.0 Allergy status to penicillin; E11.9 Type 2 diabetes mellitus without complications

== ENCOUNTER → 2018-05-29 | Day surgery (SDC) | payer OTHER | END | disposition home or self-care (01) | LOC: SDC 07:12 | DX: Z48.01 Encounter for change or removal of surgical wound dressing (principal); Z88.1 Allergy status to other antibiotic agents; Z88.0 Allergy status to penicillin ==

== ENCOUNTER → 2018-06-12 | Day surgery (SDC) | payer OTHER | END | disposition home or self-care (01) | LOC: SDC 01:08 | DX: Z48.01 Encounter for change or removal of surgical wound dressing (principal) ==

== ENCOUNTER → 2018-06-19 | Day surgery (SDC) | payer OTHER ==
[2018-06-19 11:16] LABS: BASO % 0.4 % (0.0-1.0); EOS # 0.1 10*3/uL (0.0-0.4); EOS % 1.4 % (1.0-4.0); HEMATOCRIT 34.9 % (37.0-47.0); HEMOGLOBIN 11.1 g/dl (12.0-16.0); LYMPH # 1.1 10*3/uL (1.3-4.4); LYMPH % 13.9 % (27.0-41.0); MEAN CELL VOLUME 97.5 fl (81.0-99.0); MEAN CORPUSCULAR HGB CONC 31.8 g/dl (33.0-37.0); MEAN PLATELET VOLUME 11.6 fl (9.6-12.3); MONO # 0.5 10*3/uL (0.1-1.0); MONO % 6.4 % (3.0-9.0); NEUT % 77.5 % (47.0-73.0); PLATELET COUNT AUTOMATED 182 10*3/uL (130-400); RED BLOOD COUNT 3.58 10*6/uL (4.10-5.10); RED CELL DISTRI WIDTH 14.3 % (0-14.5); WHITE BLOOD COUNT 7.8 10*3/uL (4.8-10.8)
[2018-06-19 11:40] LABS: ALBUMIN 2.2 gm/dl (3.1-4.5); BUN 36 mg/dl (7-24); CHLORIDE 103 mmol/L (98-107); POTASSIUM 4.2 mmol/L (3.5-5.1); SODIUM 138 mmol/L (136-145)
[2018-06-19 11:45] LABS: ALKALINE PHOSPHATASE 459 U/L (45-117); CREATININE 0.85 mg/dL (0.55-1.02); PHOSPHOROUS 3.5 mg/dL (2.5-4.9); SGOT/AST 87 IU/L (3-35); SGPT/ALT 96 U/L (12-78); TOTAL PROTEIN 6.2 gm/dL (6.4-8.2); TRIGLYCERIDES 115 mg/dl (<150)
== END | disposition home or self-care (01) ==
LOC: SDC 04:16
PROVIDERS: Family Medicine
DX: Z48.01 Encounter for change or removal of surgical wound dressing (principal); Z88.1 Allergy status to other antibiotic agents; Z88.8 Allergy status to other drugs, medicaments and biological substances; Z88.0 Allergy status to penicillin; Z91.040 Latex allergy status

== ENCOUNTER → 2018-06-26 | Day surgery (SDC) | payer OTHER | END | disposition home or self-care (01) | LOC: SDC 03:08 | DX: Z48.01 Encounter for change or removal of surgical wound dressing (principal) ==

== ENCOUNTER → 2018-07-11 | Day surgery (SDC) | payer OTHER ==
--- NOTE | 2018-07-11 12:01 | NUR ---
CLIENT TO TREATMENT AREA VIA WHEELCHAIR FOR ROUTINE PICC DRESSING AND CAP CHANGE. PROCEDURE WAS COMPLETED USING ASEPTIC TECHNIQUE AND WAS TOLERATED WELL. CLIENT THEN LEFT TREATMENT AREA IN STABLE CONDITION
== END | disposition home or self-care (01) ==
DX: Z48.01 Encounter for change or removal of surgical wound dressing (principal)

== ENCOUNTER → 2018-07-24 | Day surgery (SDC) | payer OTHER ==
[2018-07-24 11:14] LABS: BASO % 0.4 % (0.0-1.0); EOS # 0.2 10*3/uL (0.0-0.4); EOS % 1.8 % (1.0-4.0); HEMATOCRIT 34.4 % (37.0-47.0); HEMOGLOBIN 10.6 g/dl (12.0-16.0); LYMPH # 1.5 10*3/uL (1.3-4.4); MEAN CELL VOLUME 98.3 fl (81.0-99.0); MEAN CORPUSCULAR HGB 30.3 pg (27.0-31.0); MEAN CORPUSCULAR HGB CONC 30.8 g/dl (33.0-37.0); MEAN PLATELET VOLUME 10.6 fl (9.6-12.3); MONO # 0.9 10*3/uL (0.1-1.0); MONO % 8.6 % (3.0-9.0); NEUT # 8.1 10*3/uL (2.3-7.9); NEUT % 74.6 % (47.0-73.0); PLATELET COUNT AUTOMATED 269 10*3/uL (130-400); RED CELL DISTRI WIDTH 15.8 % (0-14.5); WHITE BLOOD COUNT 10.8 10*3/uL (4.8-10.8)
--- NOTE | 2018-07-24 11:14 | NUR ---
CLIENT AMBULATORY TO TREATMENT AREA FOR PICC BLOOD DRAW, DRESSING AND CAP CHANGE. BLOOD WAS ASPIRATED USING ASEPTIC TECHNIQUE AND SENT TO LAB AFTER 10ML BLOOD WAS ASPIRATED AND WASTED. PICC DRESSING AND CAP CHANGE WERE CHANGED ASEPTIC TECHNIQUE. ALL PROCEDURES WERE TOLERATED WELL. CLIENT THEN LEFT TREATMENT AREA IN STABLE CONDITION
[2018-07-24 11:50] LABS: ALBUMIN 2.2 gm/dl (3.1-4.5); ALKALINE PHOSPHATASE 488 U/L (45-117); BUN 34 mg/dl (7-24); CHLORIDE 104 mmol/L (98-107); CREATININE 0.79 mg/dL (0.55-1.02); PHOSPHOROUS 3.5 mg/dL (2.5-4.9); POTASSIUM 4.3 mmol/L (3.5-5.1); SGOT/AST 71 IU/L (3-35); SGPT/ALT 81 U/L (12-78); SODIUM 141 mmol/L (136-145); TOTAL PROTEIN 6.6 gm/dL (6.4-8.2); TRIGLYCERIDES 96 mg/dl (<150)
== END ==
LOC: SDC 02:12
PROVIDERS: Family Medicine
DX: Z45.2 Encounter for adjustment and management of vascular access device (principal); E11.9 Type 2 diabetes mellitus without complications; Z79.01 Long term (current) use of anticoagulants; Z88.1 Allergy status to other antibiotic agents; Z88.8 Allergy status to other drugs, medicaments and biological substances

== ENCOUNTER → 2018-07-31 | Day surgery (SDC) | payer OTHER ==
--- NOTE | 2018-07-31 11:04 | NUR ---
CLIENT TO TREATMENT AREA VIA WHEELCHAIR FOR ROUTINE TUNNELING PICC DRESSING AND CAP CHANGE. PROCEDURE WAS COMPLETED USING ASEPTIC TECHNIQUE AND WAS TOLERATED WELL. CLIENT THEN LEFT TREATMENT AREA IN STABLE CONDITION WITH ASSISTANCE FROM HER DAUGHTER
== END | disposition home or self-care (01) ==
LOC: SDC 02:19
DX: Z45.2 Encounter for adjustment and management of vascular access device (principal); Z88.1 Allergy status to other antibiotic agents; Z88.0 Allergy status to penicillin; Z93.2 Ileostomy status

== ENCOUNTER → 2018-08-07 | Day surgery (SDC) | payer OTHER | END | disposition home or self-care (01) | LOC: SDC 02:00 | DX: Z45.2 Encounter for adjustment and management of vascular access device (principal); Z53.8 Procedure and treatment not carried out for other reasons; Z88.1 Allergy status to other antibiotic agents; Z88.0 Allergy status to penicillin ==

== ENCOUNTER → 2018-08-14 | Day surgery (SDC) | payer OTHER ==
--- NOTE | 2018-08-14 12:29 | NUR ---
CLIENT TO TREATMENT AREA VIA WHEELCHAIR FOR PICC DRESSING AND CAP CHANGE. PROCEDURE WAS COMPLETED USING ASEPTIC TECHNIQUE AND WAS TOLERATED WELL. CLIENT THEN LEFT TREATMENT AREA IN STABLE CONDITION
== END | disposition home or self-care (01) ==
LOC: SDC 01:57
DX: Z45.2 Encounter for adjustment and management of vascular access device (principal); Z88.0 Allergy status to penicillin; Z88.1 Allergy status to other antibiotic agents

== ENCOUNTER → 2018-08-21 | Day surgery (SDC) | payer OTHER ==
--- NOTE | 2018-08-21 10:56 | NUR ---
CLIENT TO TREATMENT AREA VIA WHEELCHAIR FOR PICC BLOOD DRAW AND DRESSING CHANGE. BRISK BLOOD RETURN REMAINS FROM PICC. 10ML BLOOD WAS WASTED THEN SPECIMEN WAS OBTAINED AND SENT TO LAB. PICC DRESSING AND CAP CHANGE WERE DONE USING ASEPTIC TECHNIQUE AND WERE TOLERATED WELL. CLIENT THEN LEFT TREATMENT AREA IN STABLE CONDITION
[2018-08-21 11:00] LABS: BASO % 0.3 % (0.0-1.0); EOS # 0.1 10*3/uL (0.0-0.4); EOS % 1.5 % (1.0-4.0); HEMATOCRIT 33.4 % (37.0-47.0); HEMOGLOBIN 10.7 g/dl (12.0-16.0); LYMPH # 1.2 10*3/uL (1.3-4.4); LYMPH % 12.2 % (27.0-41.0); MEAN CELL VOLUME 100.9 fl (81.0-99.0); MEAN CORPUSCULAR HGB 32.3 pg (27.0-31.0); MEAN PLATELET VOLUME 10.4 fl (9.6-12.3); MONO # 0.5 10*3/uL (0.1-1.0); NEUT # 7.7 10*3/uL (2.3-7.9); NEUT % 80.7 % (47.0-73.0); PLATELET COUNT AUTOMATED 227 10*3/uL (130-400); RED BLOOD COUNT 3.31 10*6/uL (4.10-5.10); RED CELL DISTRI WIDTH 14.9 % (0-14.5); WHITE BLOOD COUNT 9.5 10*3/uL (4.8-10.8)
[2018-08-21 11:33] LABS: CHLORIDE 104 mmol/L (98-107); POTASSIUM 4.3 mmol/L (3.5-5.1); SODIUM 139 mmol/L (136-145)
[2018-08-21 12:01] LABS: ALBUMIN 2.1 gm/dl (3.1-4.5); ALKALINE PHOSPHATASE 398 U/L (45-117); BUN 32 mg/dl (7-24); PHOSPHOROUS 3.4 mg/dL (2.5-4.9); SGOT/AST 55 IU/L (3-35); SGPT/ALT 63 U/L (12-78); TOTAL PROTEIN 6.7 gm/dL (6.4-8.2); TRIGLYCERIDES 87 mg/dl (<150)
== END | disposition home or self-care (01) ==
LOC: SDC 07:46
PROVIDERS: Family Medicine
DX: Z45.2 Encounter for adjustment and management of vascular access device (principal); E44.0 Moderate protein-calorie malnutrition; Z88.1 Allergy status to other antibiotic agents; Z88.0 Allergy status to penicillin

== ENCOUNTER → 2018-08-28 | Day surgery (SDC) | payer OTHER ==
[2018-08-28 11:34] LABS: BASO % 0.4 % (0.0-1.0); EOS # 0.1 10*3/uL (0.0-0.4); EOS % 2.5 % (1.0-4.0); HEMATOCRIT 34.9 % (37.0-47.0); HEMOGLOBIN 11.1 g/dl (12.0-16.0); LYMPH # 1.1 10*3/uL (1.3-4.4); LYMPH % 20.4 % (27.0-41.0); MEAN CELL VOLUME 100.9 fl (81.0-99.0); MEAN CORPUSCULAR HGB 32.1 pg (27.0-31.0); MEAN CORPUSCULAR HGB CONC 31.8 g/dl (33.0-37.0); MEAN PLATELET VOLUME 10.5 fl (9.6-12.3); MONO # 0.4 10*3/uL (0.1-1.0); MONO % 7.2 % (3.0-9.0); NEUT # 3.9 10*3/uL (2.3-7.9); NEUT % 69.1 % (47.0-73.0); PLATELET COUNT AUTOMATED 218 10*3/uL (130-400); RED BLOOD COUNT 3.46 10*6/uL (4.10-5.10); RED CELL DISTRI WIDTH 14.5 % (0-14.5); WHITE BLOOD COUNT 5.6 10*3/uL (4.8-10.8)
[2018-08-28 11:47] LABS: ALBUMIN 2.1 gm/dl (3.1-4.5); ALKALINE PHOSPHATASE 367 U/L (45-117); BUN 29 mg/dl (7-24); CHLORIDE 105 mmol/L (98-107); CREATININE 0.79 mg/dL (0.55-1.02); PHOSPHOROUS 3.4 mg/dL (2.5-4.9); POTASSIUM 4.2 mmol/L (3.5-5.1); SGOT/AST 59 IU/L (3-35); SGPT/ALT 53 U/L (12-78); SODIUM 140 mmol/L (136-145); TOTAL PROTEIN 6.6 gm/dL (6.4-8.2); TRIGLYCERIDES 99 mg/dl (<150)
[2018-08-29 17:10] LABS: MANGANESE WHOLE BLOOD 13.2 ug/L (8.0-18.7)
== END | disposition home or self-care (01) ==
LOC: SDC 00:37
PROVIDERS: Family Medicine
DX: Z45.2 Encounter for adjustment and management of vascular access device (principal); Z88.0 Allergy status to penicillin; Z88.1 Allergy status to other antibiotic agents; E11.9 Type 2 diabetes mellitus without complications; D50.8 Other iron deficiency anemias; N18.3 Chronic kidney disease, stage 3 (moderate); E55.9 Vitamin D deficiency, unspecified; E78.5 Hyperlipidemia, unspecified

== ENCOUNTER → 2018-09-04 | Day surgery (SDC) | payer OTHER ==
--- NOTE | 2018-09-04 10:59 | NUR ---
CLIENT TO TREATMENT AREA VIA WHEELCHAIR FOR PICC DRESSING AND CAP CHANGE WELL BLOOD DRAW VIA PICC. BRISK BLOOD RETURN REMAINS FROM PICC. 10ML BLOOD WAS WASTED THEN SPECIMEN WAS OBTAINED AND SENT TO LAB. DRESSING AND CAP CHANGE WERE COMPLETED USING ASEPTIC TECHNIQUE AND WERE TOLERATED WELL. CLIENT THEN LEFT TREATMENT AREA IN STABLE CONDITION.
[2018-09-04 11:03] LABS: BASO % 0.4 % (0.0-1.0); EOS # 0.2 10*3/uL (0.0-0.4); EOS % 2.3 % (1.0-4.0); HEMATOCRIT 33.3 % (37.0-47.0); HEMOGLOBIN 10.2 g/dl (12.0-16.0); LYMPH # 1.2 10*3/uL (1.3-4.4); LYMPH % 14.2 % (27.0-41.0); MEAN CELL VOLUME 102.5 fl (81.0-99.0); MEAN CORPUSCULAR HGB 31.4 pg (27.0-31.0); MEAN CORPUSCULAR HGB CONC 30.6 g/dl (33.0-37.0); MEAN PLATELET VOLUME 10.8 fl (9.6-12.3); MONO # 0.4 10*3/uL (0.1-1.0); MONO % 4.9 % (3.0-9.0); NEUT # 6.5 10*3/uL (2.3-7.9); NEUT % 77.8 % (47.0-73.0); PLATELET COUNT AUTOMATED 191 10*3/uL (130-400); RED BLOOD COUNT 3.25 10*6/uL (4.10-5.10); RED CELL DISTRI WIDTH 14.2 % (0-14.5); WHITE BLOOD COUNT 8.3 10*3/uL (4.8-10.8)
[2018-09-04 11:29] LABS: ALBUMIN 2.2 gm/dl (3.1-4.5); BUN 34 mg/dl (7-24); CHLORIDE 104 mmol/L (98-107); CREATININE 0.83 mg/dL (0.55-1.02); POTASSIUM 4.3 mmol/L (3.5-5.1); SGOT/AST 57 IU/L (3-35); SODIUM 138 mmol/L (136-145)
[2018-09-04 11:32] LABS: ALKALINE PHOSPHATASE 365 U/L (45-117); PHOSPHOROUS 3.6 mg/dL (2.5-4.9); SGPT/ALT 60 U/L (12-78); TOTAL PROTEIN 6.5 gm/dL (6.4-8.2); TRIGLYCERIDES 93 mg/dl (<150)
== END | disposition home or self-care (01) ==
LOC: SDC 02:22
PROVIDERS: Family Medicine
DX: Z45.2 Encounter for adjustment and management of vascular access device (principal); D50.8 Other iron deficiency anemias; N18.3 Chronic kidney disease, stage 3 (moderate); E11.22 Type 2 diabetes mellitus with diabetic chronic kidney disease; I12.9 Hypertensive chronic kidney disease with stage 1 through stage 4 chronic kidney disease, or unspecified chronic kidney disease; E78.5 Hyperlipidemia, unspecified

== ENCOUNTER → 2018-10-16 | Day surgery (SDC) | payer OTHER ==
--- NOTE | 2018-10-16 11:00 | NUR ---
PATIENT ARRIVED TO OPS VIA WHEELCHAIR W/ OUT INCIDENT. CONDITION STABLE. DRESSING CHANGED TO PICC LINE RIGHT CHEST WALL. SITE ASYMPTOMATIC. STERILE DRESSING APPLIED.
== END | disposition home or self-care (01) ==
LOC: SDC 07:12
DX: Z45.2 Encounter for adjustment and management of vascular access device (principal)

== ENCOUNTER → 2018-10-23 | Day surgery (SDC) | payer OTHER | END | disposition home or self-care (01) | LOC: SDC 02:32 | DX: Z93.2 Ileostomy status (principal); Z53.8 Procedure and treatment not carried out for other reasons; Z88.0 Allergy status to penicillin; Z88.1 Allergy status to other antibiotic agents ==

== ENCOUNTER → 2018-10-30 | Day surgery (SDC) | payer OTHER ==
[2018-10-30 11:00] LABS: BASO % 0.4 % (0.0-1.0); EOS # 0.1 10*3/uL (0.0-0.4); EOS % 1.7 % (1.0-4.0); HEMATOCRIT 33.4 % (37.0-47.0); HEMOGLOBIN 10.6 g/dl (12.0-16.0); LYMPH % 13.8 % (27.0-41.0); MEAN CELL VOLUME 100.6 fl (81.0-99.0); MEAN CORPUSCULAR HGB 31.9 pg (27.0-31.0); MEAN CORPUSCULAR HGB CONC 31.7 g/dl (33.0-37.0); MEAN PLATELET VOLUME 10.6 fl (9.6-12.3); MONO # 0.4 10*3/uL (0.1-1.0); NEUT # 5.5 10*3/uL (2.3-7.9); NEUT % 77.5 % (47.0-73.0); PLATELET COUNT AUTOMATED 230 10*3/uL (130-400); RED BLOOD COUNT 3.32 10*6/uL (4.10-5.10); RED CELL DISTRI WIDTH 13.7 % (0-14.5)
--- NOTE | 2018-10-30 11:03 | NUR ---
BLAS CAME INTO OUTPATIENT TODAY VIA WHEELCHAIR WITH HER DAUGHTER. SHE DENIES ANY PAIN OR DISCOMFORT. YUE LABS FROM PATIENT'S PICC LINE. FLUSHED WITH NORMAL SALINE AND HEPARIN PER PATIENT'S REQUEST. REMOVED DRESSING. APPLIED A CLEAN DRESSING. APPLIED NEW END CAPS AND COVERS. PATIENT TOLERATED WELL. PATIENT D/C FROM OUTPATIENT WITHOUT DIFFICULTY.
[2018-10-30 11:31] LABS: ALKALINE PHOSPHATASE 306 U/L (45-117); BUN 32 mg/dl (7-24); CHLORIDE 103 mmol/L (98-107); CREATININE 0.91 mg/dL (0.55-1.02); PHOSPHOROUS 3.6 mg/dL (2.5-4.9); POTASSIUM 4.1 mmol/L (3.5-5.1); SGOT/AST 34 IU/L (3-35); SGPT/ALT 39 U/L (12-78); SODIUM 137 mmol/L (136-145); TOTAL PROTEIN 6.3 gm/dL (6.4-8.2); TRIGLYCERIDES 74 mg/dl (<150)
== END | disposition home or self-care (01) ==
LOC: SDC 03:30
PROVIDERS: Family Medicine
DX: Z45.2 Encounter for adjustment and management of vascular access device (principal); K50.818 Crohn's disease of both small and large intestine with other complication; Z79.899 Other long term (current) drug therapy; Z88.0 Allergy status to penicillin; Z88.1 Allergy status to other antibiotic agents; Z88.8 Allergy status to other drugs, medicaments and biological substances; Z93.2 Ileostomy status

== ENCOUNTER → 2018-11-20 | Day surgery (SDC) | payer OTHER ==
--- NOTE | 2018-11-20 10:50 | NUR ---
PT HERE FOR PICC LINE DRESSING CHANGE RSC PER P/P SITE ASYMPTOMATIC. NO REDNESS OR DRAINAGE NOTED. STERILE DRESSING APPLIED. TOLERATED WELL. VANNESA VEE RN
== END | disposition home or self-care (01) ==
LOC: SDC 10:13
DX: Z45.2 Encounter for adjustment and management of vascular access device (principal); Z88.0 Allergy status to penicillin; Z88.1 Allergy status to other antibiotic agents

== ENCOUNTER → 2018-11-27 | Day surgery (SDC) | payer OTHER ==
[2018-11-27 12:40] LABS: BASO % 0.3 % (0.0-1.0); EOS # 0.1 10*3/uL (0.0-0.4); EOS % 1.8 % (1.0-4.0); HEMATOCRIT 31.2 % (37.0-47.0); HEMOGLOBIN 9.6 g/dl (12.0-16.0); LYMPH % 15.5 % (27.0-41.0); MEAN CELL VOLUME 102.6 fl (81.0-99.0); MEAN CORPUSCULAR HGB 31.6 pg (27.0-31.0); MEAN CORPUSCULAR HGB CONC 30.8 g/dl (33.0-37.0); MONO # 0.4 10*3/uL (0.1-1.0); MONO % 5.6 % (3.0-9.0); NEUT # 4.8 10*3/uL (2.3-7.9); NEUT % 76.5 % (47.0-73.0); PLATELET COUNT AUTOMATED 186 10*3/uL (130-400); RED BLOOD COUNT 3.04 10*6/uL (4.10-5.10); RED CELL DISTRI WIDTH 14.6 % (0-14.5); WHITE BLOOD COUNT 6.3 10*3/uL (4.8-10.8)
[2018-11-27 13:09] LABS: ALKALINE PHOSPHATASE 286 U/L (45-117); BUN 30 mg/dl (7-24); CHLORIDE 103 mmol/L (98-107); PHOSPHOROUS 3.5 mg/dL (2.5-4.9); POTASSIUM 4.7 mmol/L (3.5-5.1); SGOT/AST 31 IU/L (3-35); SGPT/ALT 33 U/L (12-78); SODIUM 138 mmol/L (136-145); TOTAL PROTEIN 6.3 gm/dL (6.4-8.2); TRIGLYCERIDES 93 mg/dl (<150)
== END | disposition home or self-care (01) ==
LOC: SDC 11:00
PROVIDERS: Family Medicine
DX: Z45.2 Encounter for adjustment and management of vascular access device (principal); Z88.0 Allergy status to penicillin; Z88.1 Allergy status to other antibiotic agents; Z88.8 Allergy status to other drugs, medicaments and biological substances; Z79.899 Other long term (current) drug therapy; K50.813 Crohn's disease of both small and large intestine with fistula

== ENCOUNTER → 2019-01-01 | Day surgery (SDC) | payer OTHER ==
--- NOTE | 2019-01-01 11:30 | NUR ---
PT HERE FOR PICC LINE DRESSING CHANGE AND LAB DRAW. LABS SENT TO MAIN LAB. STERILE DRESSING REAPPLIED TO [facility] PICC LINE. SITE ASYMPTOMACTIC. CAPS CHANGED. PATIENT TOLERATED WELL. VANNESA VEE RN
[2019-01-01 11:36] LABS: BASO % 0.2 % (0.0-1.0); EOS # 0.1 10*3/uL (0.0-0.4); EOS % 1.5 % (1.0-4.0); HEMATOCRIT 31.4 % (37.0-47.0); HEMOGLOBIN 9.9 g/dl (12.0-16.0); LYMPH # 1.1 10*3/uL (1.3-4.4); LYMPH % 12.4 % (27.0-41.0); MEAN CORPUSCULAR HGB 32.5 pg (27.0-31.0); MEAN CORPUSCULAR HGB CONC 31.5 g/dl (33.0-37.0); MEAN PLATELET VOLUME 10.4 fl (9.6-12.3); MONO # 0.5 10*3/uL (0.1-1.0); MONO % 5.4 % (3.0-9.0); NEUT # 6.8 10*3/uL (2.3-7.9); NEUT % 80.3 % (47.0-73.0); PLATELET COUNT AUTOMATED 196 10*3/uL (130-400); RED BLOOD COUNT 3.05 10*6/uL (4.10-5.10); RED CELL DISTRI WIDTH 14.9 % (0-14.5); WHITE BLOOD COUNT 8.5 10*3/uL (4.8-10.8)
[2019-01-01 11:53] LABS: ALBUMIN 2.1 gm/dl (3.1-4.5); ALKALINE PHOSPHATASE 423 U/L (45-117); BUN 38 mg/dl (7-24); CHLORIDE 102 mmol/L (98-107); CREATININE 0.99 mg/dL (0.55-1.02); PHOSPHOROUS 3.9 mg/dL (2.5-4.9); POTASSIUM 4.3 mmol/L (3.5-5.1); SGOT/AST 52 IU/L (3-35); SGPT/ALT 46 U/L (12-78); SODIUM 138 mmol/L (136-145); TOTAL PROTEIN 6.6 gm/dL (6.4-8.2); TRIGLYCERIDES 88 mg/dl (<150)
== END | disposition home or self-care (01) ==
LOC: SDC 00:14
PROVIDERS: Family Medicine
DX: Z45.2 Encounter for adjustment and management of vascular access device (principal); I10 Essential (primary) hypertension; E11.9 Type 2 diabetes mellitus without complications; K50.813 Crohn's disease of both small and large intestine with fistula; Z79.899 Other long term (current) drug therapy; Z88.0 Allergy status to penicillin; Z88.1 Allergy status to other antibiotic agents; Z93.2 Ileostomy status

== ENCOUNTER → 2019-02-12 | Day surgery (SDC) | payer OTHER ==
--- NOTE | 2019-02-12 11:00 | NUR ---
PT HERE FOR PICC LINE DRESSING CHANGE. SITE ASYMPTOMATIC. NO REDNESS OR DRAINAGE. SITE CLEANSED WITH CHLORHEXADENE AND STERILE DRESSING REAPPLIED. CAPS ALSO CHANGED. VANNESA VEE RN
== END | disposition home or self-care (01) ==
LOC: SDC 09:55
DX: Z45.2 Encounter for adjustment and management of vascular access device (principal); Z93.2 Ileostomy status

== ENCOUNTER → 2019-02-19 | Day surgery (SDC) | payer OTHER ==
--- NOTE | 2019-02-19 10:40 | NUR ---
PT HERE FOR LAB DRAW AND PICC LINE DRESSING CHANGE. LABS SENT TO MAIN LAB. STERILE PICC DRESSING REAPPLIED. SITE ASYMPTOMATIC. NO REDNESS OR DRAINAGE. PATIENT TOLERATED WELL. VANNESA VEE RN
[2019-02-19 11:20] LABS: BASO % 0.3 % (0.0-1.0); EOS # 0.1 10*3/uL (0.0-0.4); HEMATOCRIT 32.2 % (37.0-47.0); HEMOGLOBIN 10.1 g/dl (12.0-16.0); LYMPH # 0.9 10*3/uL (1.3-4.4); LYMPH % 14.2 % (27.0-41.0); MEAN CELL VOLUME 103.9 fl (81.0-99.0); MEAN CORPUSCULAR HGB 32.6 pg (27.0-31.0); MEAN CORPUSCULAR HGB CONC 31.4 g/dl (33.0-37.0); MONO # 0.4 10*3/uL (0.1-1.0); MONO % 6.3 % (3.0-9.0); NEUT # 4.7 10*3/uL (2.3-7.9); NEUT % 76.9 % (47.0-73.0); PLATELET COUNT AUTOMATED 174 10*3/uL (130-400); RED CELL DISTRI WIDTH 14.1 % (0-14.5); WHITE BLOOD COUNT 6.1 10*3/uL (4.8-10.8)
[2019-02-19 11:35] LABS: ALBUMIN 2.1 gm/dl (3.1-4.5); ALKALINE PHOSPHATASE 416 U/L (45-117); BUN 37 mg/dl (7-24); CHLORIDE 104 mmol/L (98-107); CREATININE 0.98 mg/dL (0.55-1.02); PHOSPHOROUS 4.1 mg/dL (2.5-4.9); POTASSIUM 4.8 mmol/L (3.5-5.1); SGOT/AST 50 IU/L (3-35); SGPT/ALT 50 U/L (12-78); SODIUM 138 mmol/L (136-145); TOTAL PROTEIN 6.4 gm/dL (6.4-8.2); TRIGLYCERIDES 71 mg/dl (<150)
== END | disposition home or self-care (01) ==
LOC: SDC 02:16
PROVIDERS: Family Medicine
DX: Z45.2 Encounter for adjustment and management of vascular access device (principal); L30.9 Dermatitis, unspecified; Z93.2 Ileostomy status; E78.5 Hyperlipidemia, unspecified

== ENCOUNTER → 2019-04-16 | Day surgery (SDC) | payer OTHER ==
--- NOTE | 2019-04-16 10:45 | NUR ---
PATIENT PRESENTS FOR PICC LINE DRESSING CHANGE. PATIENT TOLERATED WELL. DRESSING CHANGED UNDER STERILE CONDITIONS
== END | disposition home or self-care (01) ==
LOC: SDC
DX: Z45.2 Encounter for adjustment and management of vascular access device (principal)

== ENCOUNTER → 2019-04-23 | Day surgery (SDC) | payer OTHER ==
--- NOTE | 2019-04-23 11:22 | NUR ---
PT HERE FOR PICC LINE DRESSING CHANGE ORDERED. SITE ASYMPTOMATIC. STERILE DRESSING REAPPLIED ALONG WITH CAPS. TOLERATED WELL. DAUGHTER WITH PATIENT VANNESA VEE RN
== END | disposition home or self-care (01) ==
LOC: SDC 08:53
DX: Z48.01 Encounter for change or removal of surgical wound dressing (principal); Z88.0 Allergy status to penicillin; Z88.8 Allergy status to other drugs, medicaments and biological substances

== ENCOUNTER → 2019-04-30 | Day surgery (SDC) | payer OTHER ==
[~2019-04-30] MED LIST changes: +CEFTRIAXONE1 GM IJ; +IRON325 M1 PO; +LIPITOR40 MG PO; +NOVAPLUS MYCAM100 MG IV; +PREMIERPRO RX500 M3 IV; +PROAIR RESPICL90 MCG INH; +Percocet 325 MG1 TAB PO; +SOLU-MEDRO40 MG/1 ML IV
--- NOTE | 2019-04-30 11:10 | NUR ---
PT HERE FOR PICC LINE DRESSING CHANGE AND LAB DRAW ORDERED. PROMPT BLOOD RETURN NOTED. LABS SENT TO MAIN LAB. STERILE DRESSING REAPPLIED. SITE ASYMPTOMACTIC. TOLERATED WELL. DAUGHTER HERE INSTRUCTED TO GET NEW ORDER FOR BLOOD AND DRESSING CHANGE. VANNESA VEE RN
[2019-04-30 11:18] LABS: BASO % 0.2 % (0.0-1.0); EOS # 0.1 10*3/uL (0.0-0.4); EOS % 1.1 % (1.0-4.0); HEMATOCRIT 28.6 % (37.0-47.0); HEMOGLOBIN 8.8 g/dl (12.0-16.0); LYMPH # 0.9 10*3/uL (1.3-4.4); LYMPH % 18.7 % (27.0-41.0); MEAN CELL VOLUME 105.1 fl (81.0-99.0); MEAN CORPUSCULAR HGB 32.4 pg (27.0-31.0); MEAN CORPUSCULAR HGB CONC 30.8 g/dl (33.0-37.0); MEAN PLATELET VOLUME 11.4 fl (9.6-12.3); MONO # 0.6 10*3/uL (0.1-1.0); MONO % 11.6 % (3.0-9.0); NEUT # 3.2 10*3/uL (2.3-7.9); PLATELET COUNT AUTOMATED 160 10*3/uL (130-400); RED BLOOD COUNT 2.72 10*6/uL (4.10-5.10); RED CELL DISTRI WIDTH 15.4 % (0-14.5); WHITE BLOOD COUNT 4.8 10*3/uL (4.8-10.8)
[2019-04-30 11:46] LABS: ALBUMIN 1.6 gm/dl (3.1-4.5); ALKALINE PHOSPHATASE 517 U/L (45-117); BUN 29 mg/dl (7-24); CHLORIDE 104 mmol/L (98-107); CREATININE 0.77 mg/dL (0.55-1.02); PHOSPHOROUS 3.4 mg/dL (2.5-4.9); POTASSIUM 4.5 mmol/L (3.5-5.1); SGOT/AST 38 IU/L (3-35); SGPT/ALT 47 U/L (12-78); SODIUM 138 mmol/L (136-145); TRIGLYCERIDES 56 mg/dl (<150)
== END | disposition home or self-care (01) ==
LOC: SDC 00:01
PROVIDERS: Family Medicine
DX: Z45.2 Encounter for adjustment and management of vascular access device (principal); K50.813 Crohn's disease of both small and large intestine with fistula; R79.89 Other specified abnormal findings of blood chemistry

== ENCOUNTER → 2019-05-07 | Day surgery (SDC) | payer OTHER ==
[~2019-05-07] MED LIST changes: -CEFTRIAXONE1 GM IJ; -IRON325 M1 PO; -LIPITOR40 MG PO; -NOVAPLUS MYCAM100 MG IV; -PREMIERPRO RX500 M3 IV; -PROAIR RESPICL90 MCG INH; -Percocet 325 MG1 TAB PO; -SOLU-MEDRO40 MG/1 ML IV
--- NOTE | 2019-05-07 11:08 | NUR ---
PATIENT BROUGHT IN TO OUTPATIENT TREATMENT AREA BY WHEELCHAIR TO HAVE HER PICC LINE DRESSING CHANGED. REMOVED OLD DRESSING. CLEANED AREA PER PROTOCOL. APPLIED NEW DRESSING. REMOVED OLD CAPS AND CLEANED LINES. APPLIED NEW CAPS. APPLIED ALCOHOL SCRUB CAPS TO ENDS. PROCEDURE DONE UNDER STERILE CONDITIONS. PATIENT TOLERATED WELL. PATIENT D/C BY WHEELCHAIR WITH HER DAUGHTER.
== END | disposition home or self-care (01) ==
LOC: SDC 11:00
DX: Z45.2 Encounter for adjustment and management of vascular access device (principal); Z93.2 Ileostomy status

== ENCOUNTER → 2019-05-14 | Day surgery (SDC) | payer OTHER ==
--- NOTE | 2019-05-14 11:14 | NUR ---
DRESSING CHANGED UNDER STERILE TECHNIQUE. LABS DRAWN AND PICC LINE FLUSED PER POLICY. PICC LINE SITE ASYMPTAMATIC. PT TOLERATED VERY WELL. BHARGAV MAN RN
[2019-05-14 11:59] LABS: BASO % 0.3 % (0.0-1.0); EOS # 0.1 10*3/uL (0.0-0.4); EOS % 1.1 % (1.0-4.0); HEMATOCRIT 29.1 % (37.0-47.0); HEMOGLOBIN 8.9 g/dl (12.0-16.0); LYMPH # 1.1 10*3/uL (1.3-4.4); LYMPH % 17.8 % (27.0-41.0); MEAN CELL VOLUME 106.6 fl (81.0-99.0); MEAN CORPUSCULAR HGB 32.6 pg (27.0-31.0); MEAN CORPUSCULAR HGB CONC 30.6 g/dl (33.0-37.0); MEAN PLATELET VOLUME 11.7 fl (9.6-12.3); MONO # 0.5 10*3/uL (0.1-1.0); MONO % 8.5 % (3.0-9.0); NEUT # 4.5 10*3/uL (2.3-7.9); PLATELET COUNT AUTOMATED 185 10*3/uL (130-400); RED BLOOD COUNT 2.73 10*6/uL (4.10-5.10); RED CELL DISTRI WIDTH 15.9 % (0-14.5); WHITE BLOOD COUNT 6.2 10*3/uL (4.8-10.8)
[2019-05-14 12:34] LABS: ALBUMIN 1.6 gm/dl (3.1-4.5); ALKALINE PHOSPHATASE 768 U/L (45-117); BUN 29 mg/dl (7-24); CHLORIDE 108 mmol/L (98-107); POTASSIUM 4.6 mmol/L (3.5-5.1); SGOT/AST 61 IU/L (3-35); SGPT/ALT 77 U/L (12-78); SODIUM 139 mmol/L (136-145); TOTAL PROTEIN 6.2 gm/dL (6.4-8.2)
== END | disposition home or self-care (01) ==
LOC: SDC 10:44
PROVIDERS: Family Medicine
DX: Z45.2 Encounter for adjustment and management of vascular access device (principal); K50.813 Crohn's disease of both small and large intestine with fistula; Z93.2 Ileostomy status

== ENCOUNTER → 2019-05-21 | Day surgery (SDC) | payer OTHER ==
--- NOTE | 2019-05-21 11:32 | NUR ---
PT IN FOR DRESSING CHANGE FOR PICC LINE. DRESSING CHANGED, CLEANED, AND SANITIZED. NEW DRESSING APPLIED. PT TOLERATED PROCEDURE.
== END | disposition home or self-care (01) ==
LOC: SDC 11:00
DX: Z45.2 Encounter for adjustment and management of vascular access device (principal); Z93.2 Ileostomy status

== ENCOUNTER → 2019-06-04 | Day surgery (SDC) | payer OTHER ==
--- NOTE | 2019-06-04 10:48 | NUR ---
PICCLINE DRESSING CHANGE WITH ASEPTIC TECHNIQUE. SITE FREE OF REDNESS AND DRAINAGE. NEW DRESSING APPLIED. ALL DONE PER POLICY AND PROCEDURE. PT TOLERATED WELL. BHARGAV MAN RN
== END | disposition home or self-care (01) ==
LOC: SDC 07:31
DX: Z45.2 Encounter for adjustment and management of vascular access device (principal); Z93.2 Ileostomy status

== ENCOUNTER → 2019-06-11 | Day surgery (SDC) | payer OTHER ==
[~2019-06-11] MED LIST changes: +CEFTRIAXONE1 GM IJ; +IRON325 M1 PO; +LIPITOR40 MG PO; +NOVAPLUS MYCAM100 MG IV; +PREMIERPRO RX500 M3 IV; +PROAIR RESPICL90 MCG INH; +Percocet 325 MG1 TAB PO; +SOLU-MEDRO40 MG/1 ML IV
--- NOTE | 2019-06-11 11:20 | NUR ---
PT IN NO OVERT DISTRESS. PICC LINE DRESSING REMOVED. SITE IN ASYMPTAMATIC. FREE OF REDDNESS, DRAINAGE AND PAIN. SITE CLEANED AND NEW DRESSING APPLIED PER POLICY AND PROCEDURE. PT TOLERATED WELL. BHARGAV MAN RN
== END | disposition home or self-care (01) ==
LOC: SDC 11:00
DX: Z45.2 Encounter for adjustment and management of vascular access device (principal)

== ENCOUNTER 2019-06-14 10:58 | Inpatient (IN) | payer OTHER ==
[2019-06-14] VITALS (8 sets, daily range): BP systolic 88–142; BP diastolic 51–66
[~2019-06-14] VITALS: Ht 157.4 cm; Wt 62.8 kg
[~2019-06-14 10:58] MED LIST changes: -CEFTRIAXONE1 GM IJ; -IRON325 M1 PO; -LIPITOR40 MG PO; -NOVAPLUS MYCAM100 MG IV; -PREMIERPRO RX500 M3 IV; -PROAIR RESPICL90 MCG INH; -Percocet 325 MG1 TAB PO; -SOLU-MEDRO40 MG/1 ML IV
[2019-06-14 12:12] LABS: HEMATOCRIT 23.8 % (37.0-47.0); HEMOGLOBIN 7.2 g/dl (12.0-16.0); MEAN CELL VOLUME 102.6 fl (81.0-99.0); MEAN CORPUSCULAR HGB CONC 30.3 g/dl (33.0-37.0); MEAN PLATELET VOLUME 13.5 fl (9.6-12.3); PLATELET COUNT AUTOMATED 66 10*3/uL (130-400); RED BLOOD COUNT 2.32 10*6/uL (4.10-5.10); RED CELL DISTRI WIDTH 19.1 % (0-14.5); WHITE BLOOD COUNT 5.2 10*3/uL (4.8-10.8)
[2019-06-14 12:22] LABS: ACT PARTIAL THROMBO TIME 53.1 SECONDS (20.0-32.1)
[2019-06-14 12:26] LABS: ALBUMIN 1.2 gm/dl (3.1-4.5); CREATININE 1.88 mg/dL (0.55-1.02); POTASSIUM 5.5 mmol/L (3.5-5.1); TOTAL PROTEIN 5.5 gm/dL (6.4-8.2)
[2019-06-14 12:29] LABS: TROPONIN I 0.024 ng/ml (<0.045)
[2019-06-14] MEDS ORDERED: IRON325 M1 PO (12:30)
[2019-06-14] MEDS ORDERED: JANUVIA100 MG PO (12:30)
[2019-06-14] MEDS ORDERED: LOPRESSOR25 MG PO (12:31)
[2019-06-14] MEDS ORDERED: LIPITOR40 MG PO (12:31)
[2019-06-14] MEDS ORDERED: PLAVIX75 M1 PO (12:32)
[2019-06-14] MEDS ORDERED: Percocet 325 MG1 TAB PO (12:32)
[2019-06-14 12:33] LABS: BURR CELLS FEW; SCHISTOCYTES FEW; TOTAL CELLS COUNTED 100 #CELLS
[2019-06-14] MEDS ORDERED: VITAMIN D50000 UNIT PO (12:33)
[2019-06-14] MEDS ORDERED: ZANTAC 150150 MG PO (12:33)
[2019-06-14 12:34] LABS: OVALOCYTES FEW; PLATELET SUFFICIENCY LOW (NORMAL)
[2019-06-14] MEDS ORDERED: ZOLOFT50 MG PO (12:34)
[2019-06-14 13:21] LABS: BILIRUBIN 1+ (NEGATIVE); BLOOD 3+ (NEGATIVE); CLARITY CLOUDY (CLEAR); COLOR YELLOW (YELLOW); GLUCOSE NEGATIVE (NEGATIVE); KETONE NEGATIVE (NEGATIVE); LEUKO ESTERASE 2+ (NEGATIVE); NITRITE NEGATIVE (NEGATIVE); PH 5.5 (5.0-9.0); SPECIFIC GRAVITY 1.015 (1.005-1.030); UROBILINOGEN 0.2 E.U./dl (0.2-1.0)
[2019-06-14 13:38] LABS: RBC 51-100 rbc/hpf (0-2); WBC 21-30 wbc/hpf (0-5)
[2019-06-14 13:39] LABS: BACTERIA 2+; EPITHELIAL CELLS 15-20
--- NOTE | 2019-06-14 14:55 | NUR ---
A 68, admitted to , under the services of JAMES Stroud DO with a diagnosis of acute renal failure. Chief complaint is COPD exacerbation. Patient arrived via stretcher from ER. Monitor applied. Initial assessment completed. Vital signs taken and recorded. JAMES STROUD DO notified of admission to the unit. Orders received. See assessment for past medical history, medications and allergies. Patient and/or family oriented to unit. [address] visitation policy reviewed. Clothing/patient valuable form completed. BORA MELENDEZ
--- NOTE | 2019-06-14 15:35 | NUR ---
Morphine given for patient c/o chronic pain rated 8/10. Will monitor.
--- NOTE | 2019-06-14 15:55 | NUR ---
Contacted patients home pharmacy for updated med list. Pharmacist to fax.
--- NOTE | 2019-06-14 16:30 | NUR ---
Morphine not effective. Physician notified.
--- NOTE | 2019-06-14 16:42 | NUR ---
Olive from [facility] called because family told her she was admitted. I requested TPN formula to be faxed. Olive also stated that they have been requesting labs for patient. [facility] number [phone]
--- NOTE | 2019-06-14 17:00 | NUR ---
Notified Dr. Juarez of patients updated med list and TPN order for pharmacy. See new orders.
[2019-06-14] MEDS ORDERED: PROAIR RESPICL90 MCG INH (17:07)
--- NOTE | 2019-06-14 17:30 | NUR ---
Photos were obtained by ER and staff nurse. Patient refused measurements. Stated "you'er not going to poke around!" Patient has multiple fissures draining. States that the bags that were measured at Dr. Tate's office did not fit. Patient is frustrated and decided to manage drainage with towels and A&D ointment. Skin is macerated. After patient was medicated for pain she was more compliant and allowed the area to be cleaned and ABD pads applied. See new orders.
--- NOTE | 2019-06-14 17:43 | NUR ---
Spoke with Dr. Juarez regarding condition of patients abdomen. Physicians are aware. See new orders.
--- NOTE | 2019-06-14 19:00 | NUR ---
ASSUMED CARE FOR THIS PT AT THIS TIME. PT RESTING QUIETLY IN BED. PT VERY WEAK. PT CURRENTLY HAS A TOWEL OVER ABD TO COLLECT FISTULA/OSTOMY DRAINAGE. NO C/O VOICED AT PRESENT. BED ALARM ON W/CALL LIGHT IN REACH.
--- NOTE | 2019-06-14 19:06 | NUR ---
Dilaudid given for patient c/o chronic abdominal pain. Pain is rated 8/10. Will monitor.
--- NOTE | 2019-06-14 21:27 | NUR ---
DR. NINA NOTIFIED OF PT'S MANUAL BP OF 88/52. INCREASE RATE OF FLUIDS TO 150ML/HR AND RECHECK BP IN 1 HR.
[2019-06-15] VITALS: BP 102/46
--- NOTE | 2019-06-15 00:30 | NUR ---
PT BP 102/46. DR. NINA NOTIFIED.
--- NOTE | 2019-06-15 02:50 | NUR ---
DR. NINA NOTIFED OF PT BLOOD SUGAR 290. ORDERED TO GIVE THREE UNITS. ALSO PUT SLIDING SCALE IN FOR PT. WILL RECHECK.
--- NOTE | 2019-06-15 04:40 | NUR ---
DR. NINA NOTIFIED OF PT STATEMENT "IM READY TO , MY HEART IS RACING. PT HR IS [address] NINA MADE AWARE. STATED THAT HE WOULD BE UP TO TALK TO PT.
--- NOTE | 2019-06-15 05:27 | NUR ---
24 HR chart check completed.
[2019-06-15 05:32] LABS: MEAN CORPUSCULAR HGB 31.3 pg (27.0-31.0); MEAN CORPUSCULAR HGB CONC 29.5 g/dl (33.0-37.0); MEAN PLATELET VOLUME 12.8 fl (9.6-12.3); PLATELET COUNT AUTOMATED 85 10*3/uL (130-400); RED BLOOD COUNT 1.98 10*6/uL (4.10-5.10); RED CELL DISTRI WIDTH 19.5 % (0-14.5); WHITE BLOOD COUNT 8.7 10*3/uL (4.8-10.8)
[2019-06-15 05:52] LABS: ALBUMIN 1.2 gm/dl (3.1-4.5); ALKALINE PHOSPHATASE 488 U/L (45-117); BUN 122 mg/dl (7-24); CHLORIDE 112 mmol/L (98-107); CREATININE 2.18 mg/dL (0.55-1.02); HDL CHOLESTEROL 6 mg/dl (40-60); PHOSPHOROUS 5.6 mg/dL (2.5-4.9); SGOT/AST 97 IU/L (3-35); SGPT/ALT 129 U/L (12-78); SODIUM 136 mmol/L (136-145); TOTAL PROTEIN 5.1 gm/dL (6.4-8.2); VLDL CHOLESTEROL 29 mg/dL (6-40)
[2019-06-15 05:53] LABS: FREE T4 0.46 ng/dl (0.76-1.46)
[2019-06-15 05:57] LABS: CHOLESTEROL < 50 mg/dL (<200); LDL CHOLESTEROL 15 mg/dL (9-159)
[2019-06-15 06:02] LABS: HEMOGLOBIN 6.2 g/dl (12.0-16.0); MEAN CELL VOLUME 106.1 fl (81.0-99.0); POTASSIUM 6.4 mmol/L (3.5-5.1)
[2019-06-15 06:03] LABS: TRIGLYCERIDES 143 mg/dl (<150)
--- NOTE | 2019-06-15 06:03 | NUR ---
DR. NINA NOTIFIED OF CRITICAL POTASSIUM 6.4 AND HGB OF 6.2. STATED HE WOULD PUT ORDERS IN.
--- NOTE | 2019-06-15 06:20 | NUR ---
DR. NINA NOTIFIED OF POSITIVE BLOOD CULTURES.
--- NOTE | 2019-06-15 06:50 | NUR ---
ORDERED TO GIVE KAYEXELATE BY MOUTH TO PT. POTASSIUM 6.4
[2019-06-15 07:12] LABS: PLATELET SUFFICIENCY LOW (NORMAL); TOTAL CELLS COUNTED 100 #CELLS
[2019-06-15 07:13] LABS: BURR CELLS FEW; OVALOCYTES FEW; POLYCHROMASIA SLIGHT
[2019-06-15 07:18] LABS: VITAMIN D, 25-HYDROXY 47.8 ng/mL (30-100)
--- NOTE | 2019-06-15 07:45 | NUR ---
Notified Dr. Ibrahim of blood culture results. See labs. No new orders at this time.
--- NOTE | 2019-06-15 10:04 | NUR ---
Message left with Dr. Hicks answering service regarding consult.
--- NOTE | 2019-06-15 10:08 | NUR ---
Dr. Dinero returned call. See new orders.
[2019-06-15 12:00] VITALS: BP 104/45
[2019-06-15] MEDS ORDERED: MUCINEX ER600 MG PO (13:50)
[2019-06-15] MEDS ORDERED: CEFTRIAXONE1 GM IJ (13:50)
[2019-06-15] MEDS ORDERED: SOLU-MEDRO40 MG/1 ML IV (13:50)
[2019-06-15] MEDS ORDERED: NOVAPLUS MYCAM100 MG IV (13:50)
[2019-06-15] MEDS ORDERED: PREMIERPRO RX500 M3 IV (13:50)
--- NOTE | 2019-06-15 14:02 | NUR ---
Spoke with Dr. Ibrahim regarding patients blood sugar of 70 at 1145. Physician to review and call back.
[2019-06-15 14:51] LABS: CREATININE 2.14 mg/dL (0.55-1.02)
[2019-06-15 14:56] LABS: POTASSIUM 6.8 mmol/L (3.5-5.1)
[2019-06-15 16:00] VITALS: BP 94/42
--- NOTE | 2019-06-15 16:39 | NUR ---
13:15 PT WITH GRUNTING TYPE RESPIRATIONS RESULTING IN COARSE BBSs: WHEEZES AND RHONCHI SX SETUP FOR ORAL SX. PT'S COUGH PRODUCTIVE FOR TENACIOUS PERRIN SECRETIONS. DA GIVEN WITH [employer]. SOME IMPROVEMNT IN BBSs. PT NT SX'D FOR SMALL PERRIN SECRETIONS. BBSs IMPROVED. 13:50 DA GIVEN WITH RACEMIC EPI. SOME IMPROVEMENT IN BBSs POST DA
--- NOTE | 2019-06-15 18:29 | NUR ---
Nurse to nurse report called to SHADI Hogan at [facility].
--- NOTE | 2019-06-15 18:31 | NUR ---
Discharge instructions reviewed with patient/family. Patient receptive and verbalizes understanding. Follow-up care arranged. Written instructions given to patient/family. Patient was wheeled from unit by EMT's. Son was educated on medications. BORA MELENDEZ
[2019-06-19 13:07] LABS: RESULT 1 Candida parapsilosis (.)
[2019-06-22 16:11] LABS: AMPHOTERICIN B MIC 0.5 ug/mL (.); FLUCYTOSINE MIC 0.25 ug/mL (.); ITRACONAZOLE MIC 0.12 ug/mL (.); KETOCONAZOLE MIC 0.03 ug/mL (.); YEAST ID Candida parapsilosis (.)
== END 2019-06-15 18:31 | disposition short-term general hospital (02) | DRG 314 ==
LOC: ED 10:58 → 4E 13:07 → EDHOLD 13:07 → 4E 13:19
PROVIDERS: Hospitalist; Internal Medicine; Nurse Practitioner Family; ADMIT Internal Medicine
PROC: 30233N1 Transfusion of Nonautologous Red Blood Cells into Peripheral Vein, Percutaneous Approach (ICD-10-PCS; principal; 2019-06-15)
DX: T82.898A Other specified complication of vascular prosthetic devices, implants and grafts, initial encounter (principal); J96.01 Acute respiratory failure with hypoxia; N17.0 Acute kidney failure with tubular necrosis; I50.23 Acute on chronic systolic (congestive) heart failure; J44.1 Chronic obstructive pulmonary disease with (acute) exacerbation; R17 Unspecified jaundice; K63.2 Fistula of intestine; N39.0 Urinary tract infection, site not specified; B49 Unspecified mycosis; R74.0 Nonspecific elevation of levels of transaminase and lactic acid dehydrogenase [LDH]; E87.5 Hyperkalemia; E87.8 Other disorders of electrolyte and fluid balance, not elsewhere classified; E83.51 Hypocalcemia; E83.41 Hypermagnesemia; R79.82 Elevated C-reactive protein (CRP); R74.8 Abnormal levels of other serum enzymes; E11.69 Type 2 diabetes mellitus with other specified complication; K57.90 Diverticulosis of intestine, part unspecified, without perforation or abscess without bleeding; G89.29 Other chronic pain; E78.5 Hyperlipidemia, unspecified; I11.0 Hypertensive heart disease with heart failure; D50.0 Iron deficiency anemia secondary to blood loss (chronic); I25.10 Atherosclerotic heart disease of native coronary artery without angina pectoris; F32.9 Major depressive disorder, single episode, unspecified; M81.0 Age-related osteoporosis without current pathological fracture; Y84.8 Other medical procedures as the cause of abnormal reaction of the patient, or of later complication, without mention of misadventure at the time of the procedure; Z88.0 Allergy status to penicillin; Z88.1 Allergy status to other antibiotic agents; I25.2 Old myocardial infarction; Z98.49 Cataract extraction status, unspecified eye; Z95.5 Presence of coronary angioplasty implant and graft; Z90.49 Acquired absence of other specified parts of digestive tract; Z87.891 Personal history of nicotine dependence; Z82.49 Family history of ischemic heart disease and other diseases of the circulatory system; Z82.5 Family history of asthma and other chronic lower respiratory diseases; Z79.899 Other long term (current) drug therapy; Z79.02 Long term (current) use of antithrombotics/antiplatelets; Y92.89 Other specified places as the place of occurrence of the external cause; R31.9 Hematuria, unspecified